=== PATIENT | female | born 1985 | race Caucasian/White ===

== ENCOUNTER → 2022-04-15 | Outpatient (CLI) | payer OTHER, SELFPAY ==
--- NOTE | 2022-04-15 17:20 | RAD_ITS ---
STUDY: X-RAY CHEST REASON FOR EXAM: Female, 36 years old. Acute bronchitis. TECHNIQUE: COMPARISON: None. FINDINGS: The lungs are clear and expanded. There is no demonstrated pleural abnormality. Normal size heart. Normal mediastinum and dixon. Normal visualized pulmonary arteries. Normal visualized aortic arch and descending thoracic aorta. Normal visualized thoracic spine. Normal visualized ribs, clavicles, and shoulders. There is no demonstrated abnormality of the visualized soft tissue structures of the upper abdomen. RAD/Chest PA and Lateral IMPRESSION: Normal x-ray examination of the chest. Electronically Signed: Cliff Zamora DO at 21:17 [facility] ,
== END | disposition home or self-care (01) ==
PROVIDERS: PCP Family Medicine; Referring Provider Family Medicine; Visit Provider Family Medicine
DX: J20.9 Acute bronchitis, unspecified (principal)
CPT/HCPCS: 71046

== ENCOUNTER 2022-11-19 12:10 | Inpatient (IN) | payer OTHER, SELFPAY ==
[2022-11-19] VITALS (66 sets, daily range): BP systolic 104–144; BP diastolic 52–85; PULSE 85–124; RESP 16; TEMP 36.4–37.3; O2SAT 85–100; BMI 28.5
[2022-11-19] MEDS: LACTATED RINGERS 500 ML 999 ML IV (12:55)
[2022-11-19 13:10] LABS: Absolute Lymphocyte Count 2.27 X10^3/uL (0.83-4.51); Absolute Neutrophil Count 16.3 X10^3/uL (2.0-7.7); Basophil# 0.04 X10^3/uL; Basophil% 0.2 % (0-1); Eosinophil# 0.04 X10^3/uL; Eosinophils% 0.2 % (0-5); Hematocrit 39.6 % (37-47); Hemoglobin 13.2 g/dL (12.0-15.0); Lymphocyte # 2.27 X10^3/ul (0.83-4.51); Lymphocyte % 11.4 % (19-41); Mean Corp Hgb Conc 33.3 g/dL (32-36); Mean Corpuscular Hgb 29.2 pg (27.0-32.0); Mean Corpuscular Volume 87.6 fL (81-99); Mean Platelet Vol. 10.4 fl (6.2-12.0); Monocyte# 1.07 X10^3/uL; Monocyte% 5.4 % (0-10); NRBC Flagged by Analyzer 0 % (0-5); Neutrophil # 16.34 X10^3/uL (2.7-7.7); Neutrophil % 82.1 % (47-70); Platelet Count 314 K/mm3 (150-450); RBC Distribution Width CV 13.3 % (11.6-14.6); RBC Distribution Width SD 42.4 fl (35.1-43.9); Red Blood Count 4.52 M/mm3 (4.2-5.4); White Blood Count 19.9 K/mm3 (4.4-11.0)
[2022-11-19] MEDS: Lactated Ringers 1,000 ML 50 ML IV (13:26)
[2022-11-19 13:50] LABS: Syphilis Antibodies Non-reactive
[2022-11-19] MEDS: fentaNYL-bupivacaine (epidural) 100 ML BAG EPIDURAL (13:57)
--- NOTE | 2022-11-19 14:36 | PCM.HP.OB ---
HPI - General General Date of Admission: 11/19/22 Date of Service: 11/19/22 Chief Complaint: labor HPI Narrative GIORGIO HASTINGS, is a 37 F who presents complaining of contract. She was found to be 4-1/2 cm in the office this morning and sent to labor and delivery for labor. She was very uncomfortable with the contractions. is complicated to date by advanced maternal age. Maternal Data Information Final NETTIE: 11/26/22 Gestational age: 39 0/7 PFSH PFSH Home Medications B6 200 mg-levomefolate 8 mg-B12 4 mg-ALA 600 mg-intrinsic fact tablet tab PO DAILY nausea 11/19/22 [History Last Taken 11/18/22 09:00 1 TAB] 1 1 tab PO DAILY 11/19/22 [History Last Taken 11/18/22 08:42 1 tab] aspirin 81 mg tablet,delayed release 81 mg PO DAILY 11/19/22 [History Last Taken 11/18/22 17:00 81 mg] Allergy/AdvReac Type Severity Reaction Status Date / Time No Known Allergies Allergy Verified 11/19/22 12:28 Surgical History (Updated 11/19/22 @ 14:23 by Abigail Escobar) History of surgery Social History Smoking Status: Never smoker History Elective abortions Hx Para 0 Spontaneous abortions Hx # Term Pregnancies Ectopic pregnancies Hx # Pregnancies Multiple births # of living children ROS Constitutional Constitutional: Denies fatigue, fever(s) or malaise Eyes Eyes: Denies change in vision ENT HEENT: Denies dizziness or headache(s) Cardiovascular Cardiovascular: Denies chest pain, dyspnea or lightheadedness Respiratory/Chest Respiratory/Chest: Denies cough or dyspnea Gastrointestinal Gastrointestinal: Denies change in bowel habits Genitourinary Genitourinary: Denies burning urination or genital lesions Integumentary Integumentary: Denies rash Neurologic Neurologic: Denies confusion, dizziness, headache(s), numbness or weakness Vital Signs Vital Signs Vital Signs: 11/19/22 13:32 11/19/22 13:32 11/19/22 13:33 Temperature Temperature Source Pulse Rate 97 117 H Blood Pressure 119/75 BP Systolic 119 BP Diastolic 75 Pulse Ox 11/19/22 13:33 11/19/22 13:38 11/19/22 13:38 Temperature Temperature Source Pulse Rate 96 Blood Pressure 139/81 H BP Systolic 139 BP Diastolic 81 Pulse Ox 98 11/19/22 13:38 11/19/22 13:38 11/19/22 13:43 Temperature Temperature Source Pulse Rate 108 H Blood Pressure 133/77 H BP Systolic 133 BP Diastolic 77 Pulse Ox 100 11/19/22 13:43 11/19/22 13:43 11/19/22 13:48 Temperature Temperature Source Pulse Rate 124 H Blood Pressure 128/70 H BP Systolic 128 BP Diastolic 70 Pulse Ox 99 11/19/22 13:48 11/19/22 13:48 11/19/22 13:53 Temperature Temperature Source Pulse Rate 100 Blood Pressure 131/63 H BP Systolic 131 BP Diastolic 63 Pulse Ox 99 11/19/22 13:53 11/19/22 13:53 11/19/22 13:53 Temperature Temperature Source Pulse Rate 94 116 H Blood Pressure BP Systolic BP Diastolic Pulse Ox 97 11/19/22 13:58 11/19/22 13:58 11/19/22 13:58 Temperature Temperature Source Pulse Rate 105 H Blood Pressure 138/81 H BP Systolic 138 BP Diastolic 81 Pulse Ox 95 11/19/22 14:03 11/19/22 14:03 11/19/22 14:00 Temperature Temperature Source Temporal Pulse Rate 85 Blood Pressure 129/70 H BP Systolic 129 BP Diastolic 70 Pulse Ox 11/19/22 14:04 11/19/22 14:04 11/19/22 14:00 Temperature 99.2 F H Temperature Source Pulse Rate 105 H Blood Pressure BP Systolic BP Diastolic Pulse Ox 98 11/19/22 14:08 11/19/22 14:08 11/19/22 14:09 Temperature Temperature Source Pulse Rate 92 96 Blood Pressure 126/70 H BP Systolic 126 BP Diastolic 70 Pulse Ox 11/19/22 14:09 11/19/22 14:13 11/19/22 14:13 Temperature Temperature Source Pulse Rate 88 Blood Pressure 129/70 H BP Systolic 129 BP Diastolic 70 Pulse Ox 99 11/19/22 14:13 11/19/22 14:14 11/19/22 14:14 Temperature Temperature Source Pulse Rate 85 Blood Pressure BP Systolic BP Diastolic Pulse Ox 85 96 11/19/22 14:18 11/19/22 14:18 11/19/22 14:19 Temperature Temperature Source Pulse Rate 96 89 Blood Pressure 131/77 H BP Systolic 131 BP Diastolic 77 Pulse Ox 11/19/22 14:19 11/19/22 14:19 11/19/22 14:19 Temperature Temperature Source Pulse Rate 93 Blood Pressure BP Systolic BP Diastolic Pulse Ox 94 96 11/19/22 14:24 11/19/22 14:24 11/19/22 14:24 Temperature Temperature Source Pulse Rate 96 95 Blood Pressure 119/74 BP Systolic 119 BP Diastolic 74 Pulse Ox 11/19/22 14:24 11/19/22 14:28 11/19/22 14:28 Temperature Temperature Source Pulse Rate 111 H Blood Pressure 125/80 H BP Systolic 125 BP Diastolic 80 Pulse Ox 99 11/19/22 14:28 11/19/22 14:29 11/19/22 14:29 Temperature Temperature Source Pulse Rate 88 Blood Pressure BP Systolic BP Diastolic Pulse Ox 88 93 11/19/22 14:33 11/19/22 14:33 11/19/22 14:34 Temperature Temperature Source Pulse Rate 110 H 98 Blood Pressure 123/71 H BP Systolic 123 BP Diastolic 71 Pulse Ox 11/19/22 14:34 Temperature Temperature Source Pulse Rate Blood Pressure BP Systolic BP Diastolic Pulse Ox 93 Weight Weight: 85.275 kg Body Mass Index (BMI) 28.5 Labs Labs Labs: Blood Type A NEGATIVE Antibody Screen NEGATIVE Hct 39.6 % (37-47) Hgb 13.2 g/dL (12.0-15.0) Syphilis Total Ab Non-reactive Assessment & Plan (1) Spontaneous onset of labor: PLAN: 37-year-old 1 para 0 in spontaneous labor. Estimated weight is less than 4500 g clinically and pelvis clinically adequate to expect vaginal delivery. May have routine pain control measures during labor. Group B strep status is negative. (2) 39 weeks gestation of : (3) Advanced maternal age during in third trimester:
[2022-11-19] MEDS: Oxytocin 10 UNITS/ML Vial IM (16:18)
[2022-11-19] MEDS: Oxytocin 15 Units/NS 250ml 15 UNITS/250 ML IV.SOLN 83 UNITS IV (16:19)
[2022-11-19] MEDS: Lidocaine 1% (20 ml mdv) 20 ML Vial INFILT (16:25)
--- NOTE | 2022-11-19 16:41 | EX.PCM.OBRPT ---
Assessment & Plan (1) (spontaneous vaginal delivery): (2) Laceration, obstetrical, first degree: (3) Care and examination of lactating mother: Maternal Data Information NETTIE Calculator Estimated Delivery Date Method Current WG Current Estimate 11/26/22 Manual 39w 0d Vaginal Delivery Maternal Presentation Maternal Presentation: - (Spontaneous onset of labor.) Maternal Presentation: at 39 weeks gestation that was sent over from office for spontaneous onset of labor. Operative Information Date of Procedure: 11/19/22 Pre-Operative Diagnosis: Term gestation, Spontaneous onset of labor Post-Operative Diagnosis: , Live female infant Surgery / Procedure Performed: Spontaneous Vaginal Delivery Type of Anesthesia: Local with 1% Lidocaine Estimated Blood Loss: 150 Time of Delivery: 16:14 Findings Description of Procedure: Patient feeling urge to push. Arrived at bedside. With minimal maternal effort, head delivered followed by anterior shoulder and remainder of body. Vigorous female placed on abdomen and attended to by nursing staff. IM and IV Pitocin started for active management of the third stage of labor. Placenta delivered spontaneously and intact. First degree vaginal laceration repaired in usual fashion using 3-0 Vicryl Rapid after local anesthesia placed. Hemostasis obtained. Vaginal sweep completed by me. Fundus firm 2 below U. EBL 150 cc. APGARS 9/9. Infant and patient bonding well at this time. Nursing assisting with latching for . Dr Maloney notified of delivery. Presentation: Vertex Amniotic Membrane Rupture Type: Artificial Time of Membrane Rupture: 1443 Amniotic Fluid Description: Clear Placental Delivery Description: Spontaneous Placenta Disposition: [facility] Cord Vessel Description: 3 Vessels Cord Entanglement: None A Gender: Female (1 minute): 9 (5 minute): 9 Delayed Cord Clamping: Yes Post Vaginal Delivery Medications Given After Delivery: IV Pitocin and IM Pitocin Episiotomy Description: None Laceration: 1st degree Complication Complications: None
[2022-11-19] MEDS: Senna/Docusate Sodium 1 Tablet PO (20:43)
[2022-11-19] MEDS: Benzocaine/Lanolin/Aloe Vera 1 SPRAY EACH TOPICAL (20:59)
[2022-11-20] VITALS (13 sets, daily range): BP systolic 111–130; BP diastolic 67–74; PULSE 73–108; RESP 16; TEMP 36.2–37.4; O2SAT 93–98
--- NOTE | 2022-11-20 06:43 | PN.OBGYN_ITS ---
Subjective Subjective Patient seen at bedside. Feeling good. Denies any pain. Ambulating and voiding without difficulty. Lochia decreasing. with support. Desires discharge tomorrow. Objective Data Objective Data Vital Signs: Vital Signs Temp Pulse Resp BP Pulse Ox O2 Del Method 99.0 F 93 16 111/71 98 Room Air 11/20/22 04:04 11/20/22 04:05 11/20/22 04:04 11/20/22 04:05 11/20/22 04:04 11/20/22 04:04 Oxygen Delivery Method Room Air Weight: 188 lb Body Mass Index (BMI) 28.5 Intake & Output: Intake and Output for Last 24 Hours 11/18/22 11/19/22 11/20/22 23:59 23:59 23:59 Intake Total 886.23 / 886.23 Output Total 350 / 350 Balance 536.23 / 536.23 Lab / Micro Data Attestation: I reviewed the patient's lab results. 11/19/22 12:55 Labs: Laboratory Results - last 24 hr 11/19/22 12:55: WBC 19.9 H, RBC 4.52, Hgb 13.2, Hct 39.6, MCV 87.6, MCH 29.2, MCHC 33.3, RDW Std Deviation 42.4, RDW Coeff of Conrad 13.3, Plt Count 314, MPV 10.4, Immature Gran % (Auto) 0.700, Neut % (Auto) 82.1 H, Lymph % (Auto) 11.4 L, [place] % (Auto) 5.4, Eos % (Auto) 0.2, Baso % (Auto) 0.2, Absolute Neuts (auto) 16.3 H, Absolute Lymphs (auto) 2.27, Nucleated RBC % 0, Syphilis Total Ab Non- reactive, Blood Type A NEGATIVE, Antibody Screen NEGATIVE 11/19/22 18:16: Screen NEGATIVE, Baby's Blood Type B POSITIVE, Baby's CHARLES NEGATIVE ROS Eyes Eyes: Denies blurry vision, change in vision or spots in vision ENT HEENT: Denies dizziness or headache(s) Cardiovascular Cardiovascular: Denies abdominal pain, chest pain or dyspnea Respiratory/Chest Respiratory/Chest: Denies cough, dyspnea, shortness of breath at rest or shortness of breath with exertion Gastrointestinal Gastrointestinal: Denies abdominal pain, diarrhea or vomiting Genitourinary Genitourinary: Denies change in urinary stream, difficulty urinating or dysuria Musculoskeletal Musculoskeletal: Reports none Integumentary Integumentary: Denies rash Neurologic Neurologic: Denies dizziness, headache(s), memory loss or weakness Physical Exam Const alert and no apparent distress General Appearance: cooperative and comfortable Exam Limitations: no limitations HEENT normocephalic Eyes General Eye: normal appearance of both eyes Neck full ROM General: normal visual inspection Chest Chest: symmetrical chest wall rise Resp normal respiratory effort and normal air movement Effort and Inspection: symmetric chest movement Auscultation: clear to auscultation bilaterally Cardio regular rate and regular rhythm GI normal to inspection, nondistended, normoactive bowel sounds Back/Spine normal ROM Extremity full ROM and no calf tenderness General Extremity: normal exam except as noted Skin no rashes or lesions noted Neuro CN's II-XII intact bilaterally Psych mental status grossly normal Assessment & Plan (1) Care and examination of lactating mother: (2) Laceration, obstetrical, first degree: (3) (spontaneous vaginal delivery): PLAN: Plan PPD 1 Ambulating and voiding without difficulty with support Anticipate discharge home tomorrow
--- NOTE | 2022-11-20 09:15 | NURSING ---
Assisted student with AM assessment and agree with student charting. KARYN Chow [employer] instructor
[2022-11-21 02:12] VITALS: BP 116/62; PULSE 87; RESP 16; TEMP 36.8; O2SAT 94
[2022-11-21 08:43] VITALS: BP 113/62; PULSE 90; RESP 16; TEMP 36.9
--- NOTE | 2022-11-21 12:06 | PCM.PN.BLA ---
Progress Note Pain well controlled. Average lochia Physical Exam Const alert and no apparent distress Narrative: Fundus firm, below umbilicus. Assessment & Plan Assessment/Plan (1) (spontaneous vaginal delivery): PLAN: day #2 status post vaginal delivery. Patient is doing well and desires discharge home
--- NOTE | 2022-11-21 12:09 | DS.PCM_ITS ---
Providers Date of Admission: 11/19/22 Primary Care Physician: Dr. Zeke Gauthier MD Reason For Visit: VAGINAL DELIVERY Diagnosis Discharge Diagnosis (1) (spontaneous vaginal delivery): Status: Acute Code(s): O80 - Encounter for full-term uncomplicated delivery Plan: day #2 status post vaginal delivery. Patient is doing well and desires discharge home Medications at Discharge Home Medications B6 200 mg-levomefolate 8 mg-B12 4 mg-ALA 600 mg-intrinsic fact tablet tab PO DAILY nausea 11/19/22 1 1 tab PO DAILY 11/19/22 Hospital Course Operations None Procedures None Summary of Care Provided Minutes Spent on Discharge: 12 Hospital Course: Patient was admitted at term on 11/19/2022 in spontaneous labor. She had a vaginal delivery without complications. By postoperative day #2 she was ambulating, urinating tolerating regular diet and ready for discharge home. She is to follow-up in the office in 1-2 in 6 weeks or as needed. Weight / BMI Weight Weight: 85.275 kg Body Mass Index (BMI) 28.5 ABG / Lab / Microbiology Data 11/19/22 12:55 D/C Instructions Discharge Diet: No restrictions May resume sexual activity in: 6 weeks Call your doctor if your incision/area has: Continuous Slow Oozing, Sudden Increased Bleeding, Foul Smelling Discharge and Swelling at the incision site Call your doctor if you observe: Fever of 101 or Higher and Inability to urinate Please Follow Up With: Daisy Barrett MD When: Follow up with our office in 1-2 and 6 weeks or as needed. [phone]. Contact us via [employer] to schedule appointments and for nonurgent issues. Meaningful Use Info Meaningful Use Diagnoses (Choose all that apply): None applicable Discharge Plan Admission Admit Date/Time: 11/19/22 12:10 Primary Reason for Your Visit: Vaginal delivery Attending Provider: Lizabeth Duron Primary Care Provider: Zeke Gauthier Discharge Orders/Prescriptions Prescriptions: Continued 1 1 tab PO DAILY [id number] 200-8-4-600 mg tablet PO DAILY Discontinued aspirin 81 mg tablet,delayed release (DR/EC) 81 mg PO DAILY Referrals / Follow Up: Zeke Gauthier MD [Primary Care Provider] - Disposition Disposition (needs filled in before D/C Order can be placed): Home, Self Care
== END 2022-11-21 12:45 | disposition home or self-care (01) | DRG 807 ==
PROVIDERS: Admitting Provider Advanced Practice Midwife; PCP Family Medicine; Visit Provider Advanced Practice Midwife
DX: O70.0 First degree perineal laceration during delivery (principal); Z37.0 Single live birth; Z79.82 Long term (current) use of aspirin; Z3A.39 39 weeks gestation of pregnancy
CPT/HCPCS: 59025; 59050; 85025; 85461; 86780; 86850; 86900; 86901; 99221; J7120; G0378; J2790

== ENCOUNTER 2022-12-24 10:49 | Emergency (ER) | payer OTHER, SELFPAY ==
[2022-12-24 10:51] VITALS: BP 147/89; PULSE 110; RESP 18; TEMP 36.3; O2SAT 99; BMI 27.1
--- NOTE | 2022-12-24 11:18 | EX.ED.DYSGE1 ---
HPI History of Present Illness Chief Complaint: Abd Pain Informant: patient Narrative Narrative: Presents with sudden pain left lower quadrant rating to her back since this morning. Reported in the position. Nausea without vomiting. Took Tylenol at 8 AM. She is 5 weeks vaginal delivery followed by [facility]. There is no complications with delivery or during her . This was her first delivery. She is currently breast-feeding. Denies history of kidney stones. States has had pain in her left ovary area with menstrual periods in the past however no findings of any large ovarian cyst. She states none during her . Denies any abdominal surgery. Denies any allergies. No headaches. No chest pains or shortness of breath. Prior similar symptoms: No PFSH PFSH Medical History Laceration, obstetrical, first degree (spontaneous vaginal delivery) Home Medications B6 200 mg-levomefolate 8 mg-B12 4 mg-ALA 600 mg-intrinsic fact tablet tab PO DAILY nausea 11/19/22 [History Last Taken 11/18/22 09:00 1 TAB] 1 1 tab PO DAILY 11/19/22 [History Last Taken 11/18/22 08:42 1 tab] cefdinir 300 mg capsule 300 mg PO BID #14 caps 12/24/22 [Rx Last Taken Unknown] ondansetron 4 mg disintegrating tablet 4 mg PO Q8H PRN PRN Nausea #10 tabs 12/24/22 [Rx Last Taken Unknown] Allergy/AdvReac Type Severity Reaction Status Date / Time No Known Allergies Allergy Verified 12/24/22 11:02 Surgical History History of surgery Social History Smoking Status: Never smoker ROS ROS ED Constitutional Constitutional ED: Denies chills, fever(s) or sweats Eyes Eyes: Denies change in vision ENT ENT ED: Denies dysphagia or sore throat Cardiovascular Cardiovascular: Denies chest pain, leg edema, palpitations or racing heartbeat Respiratory/Chest Respiratory/Chest: Denies cough, dyspnea or dyspnea on exertion Gastrointestinal Gastrointestinal: Reports abdominal pain and nausea; Denies diarrhea or vomiting Genitourinary Genitourinary ED: Denies dysuria, hematuria or urinary frequency Musculoskeletal Musculoskeletal: Denies back pain, extremity pain or neck pain Integumentary Denies rash or wounds Neurologic Neurologic: Denies headache(s), paresthesias or weakness EXAM Physical Exam Const Vital Signs: 12/24/22 10:51 12/24/22 13:19 12/24/22 15:37 Temperature 97.3 F L Temperature Source Temporal Pulse Rate 110 H 85 95 Respiratory Rate 18 13 16 Blood Pressure 147/89 H 120/70 117/81 H Blood Pressure Mean 108 86 93 Pulse Ox 99 96 95 Oxygen Delivery Method Room Air Room Air Positive well nourished and well developed General Appearance ED: well developed and NAD HEENT Reports moist mucous membranes normocephalic and atraumatic Eyes PERRL, EOMs intact bilaterally and conjunctivae normal General Eye ED: Yes normal appearance of both eyes Neck no lymphadenopathy and supple General: Negative for tenderness Chest Wall Chest: Negative for tenderness Resp normal respiratory effort and normal air movement Effort and Inspection: symmetric chest movement; Negative for respiratory distress Cardio regular rate, regular rhythm and no murmurs Peripheral Pulses: pulses 2+ throughout GI normal to inspection, nondistended, normoactive bowel sounds and non-tender GI Narrative: Negative Serna's McBurney's tenderness. No reproducible left lower quadrant tenderness. Palpation: Negative for guarding or rebound tenderness present Back/Spine no CVA tenderness and no thoracic nor lumbar tenderness Extremity normal to inspection General Extremety ED: Negative for edema or tenderness General Extremity: Negative for edema Neuro oriented x3 and no sensory deficits noted Neuro Narrative: 2+ bilateral patellar reflexes. Sensorium / Orientation: awake and alert Skin no rashes or lesions noted and no wounds MDM MDM MDM Narrative Medical decision making narrative: Interventions / MDM: Differential diagnosis: Stones, UTI Diagnosis considered but do not suspect: Preeclampsia however blood pressure improved likely pain induced. My EKG interpretation: N/A Imaging independently reviewed and interpreted by myself: CT abdomen pelvis: Mild residual hydronephrosis on the left with no obstructing stone. Likely passed stone. Nephrolithiasis noted. Is also read by radiology. External documents reviewed: N/A Test considered but not ordered:N/A ED course: Presenting sudden pain colicky in nature left lower quadrant. Renal stone protocol initiated. Initial Toradol fluids were ordered CT scan labs and urine. Additional morphine later added. Blood pressure improved when pain was controlled. Work-up with CT scan likely passed stone with residual hydro-. Nephrolithiasis also noted. White count 14.8. Urine signs infection culture sent. Normal creatinine. Pain is controlled. She is covered with Rocephin for complicated UTI. Prescription for antibiotics and antiemetics. She wanted to avoid further opiates. She will pump and dump for the next 24 hours. She is given follow-up with urology. Return precautions. All questions were answered. Re-evaluation: stable Disposition discussed with patient/family/significant other: Patient and family Case discussed with consulting clinician: N/A This note was generated with [employer] dictation software. It may contain incorrect words, spelling, and punctuation that were not noted in checking the note before signing. Lab Data Attestation: I reviewed the patient's lab results. Labs: Laboratory Results - last 24 hr 12/24/22 12/24/22 11:30 12:40 WBC 14.8 H RBC 5.16 Hgb 14.8 Hct 44.7 MCV 86.6 MCH 28.7 MCHC 33.1 RDW Std Deviation 40.1 RDW Coeff of Conrad 12.6 Plt Count 328 MPV 9.8 Immature Gran % (Auto) 0.300 Neut % (Auto) 76.7 H Lymph % (Auto) 16.8 L [place] % (Auto) 5.3 Eos % (Auto) 0.5 Baso % (Auto) 0.4 Absolute Neuts (auto) 11.4 H Absolute Lymphs (auto) 2.49 Nucleated RBC % 0 Sodium 140 Potassium 3.7 Chloride 110 H Carbon Dioxide 21.0 Anion Gap 9 BUN 15 Creatinine 0.83 Estim Creat Clear Calc 94.52 Est GFR (MDRD) Af Amer 100 Est GFR (MDRD) Non-Af 83 BUN/Creatinine Ratio 18.1 Glucose 98 Calcium 9.0 Total Bilirubin 0.40 AST 18 ALT 41 Alkaline Phosphatase 107 Total Protein 7.4 Albumin 3.5 Globulin 3.9 Albumin/Globulin Ratio 0.9 Urine Color Yellow Urine Clarity Sl. Cloudy Urine pH 6.0 Ur Specific [place] 1.015 Urine Protein 15 H Urine Glucose (UA) Normal Urine Ketones Negative Urine Occult Blood 50 H Urine Nitrite Negative Urine Bilirubin Negative Urine Urobilinogen Normal Ur Leukocyte Esterase 500 H Urine RBC 0-5 SEEN Urine WBC 10-25 SEEN Ur Squamous Epith Cells 0-5 SEEN Urine Bacteria 1+ Urine Mucus 1+ Urine Test Negative Radiography Diagnostic Testing: Clinical Impression(s) from Imaging Studies Abdomen/Pelvis CT 12/24/22 11:55 IMPRESSION: 1. Mild left hydronephrosis but no visible obstructing stones in the left kidney, left ureter and urinary bladder. It is quite possible that the patient has passed the stone and this may be due to residual spasm in the left UVJ. 2. At least 4 tiny 2 mm nonobstructing stones in left kidney. 3. Normal right kidney. 4. Mild hepatomegaly measuring 19.8 cm long. Electronically Signed: Miguel Gomez MD at 12:16 EDT , Discharge Plan Triage Chief Complaint: Abd Pain ED Provider: Oscar Chatman Dx/Rx/DC Orders Clinical Impression: Acute flank pain, Complicated urinary tract infection, Hydronephrosis, left Instructions: UTIs Understanding, Understanding Hydronephrosis Prescriptions: New ondansetron [ondansetron] 4 mg tablet,disintegrating 4 mg PO Q8H PRN PRN (Reason: Nausea) Qty: 10 0RF cefdinir 300 mg capsule 300 mg PO BID Qty: 14 0RF No Action 1 1 tab PO DAILY [id number] 200-8-4-600 mg tablet PO DAILY Primary Care Provider: Zeke Gauthier Referrals: Caden Tompkins MD [Med Staff - Active Staff] - 1 Week Zeke Gauthier MD [Primary Care Provider] - Activity Restrictions/Additional Instructions: Mild residual hydronephrosis on the left side. No stone obstruction. Residual small stones in the left kidney. Urine with signs of infection. Take antibiotics as prescribed. Zofran as needed. Use Tylenol or Motrin every 6 hours as needed. Pump and dump your milk for the next day since you were given morphine. Follow-up with urology. Return if any worsening symptoms for reevaluation. Disposition Disposition: Home, Self Care Discharge Date/Time: 12/24/22 15:40
[2022-12-24] MEDS: 0.9% Normal Saline (1000mL) 1,000 ML 1000 ML IV (11:34)
[2022-12-24] MEDS: Ondansetron 4 MG/2 ML Vial IV (11:34)
[2022-12-24] MEDS: Ketorolac 15 MG/ML Vial IV (11:34)
[2022-12-24 11:49] LABS: Absolute Lymphocyte Count 2.49 X10^3/uL (0.83-4.51); Absolute Neutrophil Count 11.4 X10^3/uL (2.0-7.7); Basophil# 0.06 X10^3/uL; Basophil% 0.4 % (0-1); Eosinophil# 0.07 X10^3/uL; Eosinophils% 0.5 % (0-5); Hematocrit 44.7 % (37-47); Hemoglobin 14.8 g/dL (12.0-15.0); Lymphocyte # 2.49 X10^3/ul (0.83-4.51); Lymphocyte % 16.8 % (19-41); Mean Corp Hgb Conc 33.1 g/dL (32-36); Mean Corpuscular Hgb 28.7 pg (27.0-32.0); Mean Corpuscular Volume 86.6 fL (81-99); Mean Platelet Vol. 9.8 fl (6.2-12.0); Monocyte# 0.78 X10^3/uL; Monocyte% 5.3 % (0-10); NRBC Flagged by Analyzer 0 % (0-5); Neutrophil # 11.39 X10^3/uL (2.7-7.7); Neutrophil % 76.7 % (47-70); Platelet Count 328 K/mm3 (150-450); RBC Distribution Width CV 12.6 % (11.6-14.6); RBC Distribution Width SD 40.1 fl (35.1-43.9); Red Blood Count 5.16 M/mm3 (4.2-5.4); White Blood Count 14.8 K/mm3 (4.4-11.0)
--- NOTE | 2022-12-24 11:55 | CT_ITS ---
EXAM: CT ABDOMEN AND PELVIS WITHOUT INTRAVENOUS CONTRAST CLINICAL INDICATION: Flank pain. TECHNIQUE: Helically acquired images were obtained of the abdomen and pelvis without intravenous contrast. This CT exam was performed using one or more of the following dose reduction techniques: automated exposure control, adjustment of the mA and/or kV according to patient size, and/or use of iterative reconstruction technique. RADIATION DOSE: CTDIvol = 8.63 mGy, DLP = 448.34 mGy-cm COMPARISON: No relevant prior studies available. FINDINGS: LOWER THORAX: Unremarkable. Lung bases are clear. No cardiomegaly. No significant pericardial effusion. ABDOMEN: LIVER: Calcified granuloma in the right posterior hepatic lobe. Mild hepatomegaly measuring 19.8 cm long. GALLBLADDER AND BILE DUCTS: Unremarkable. No calcified gallstones. No gallbladder distention or wall edema. No intra- or extrahepatic biliary ductal dilation. PANCREAS: Unremarkable. No focal cystic mass. SPLEEN: Unremarkable. Normal size without focal cystic or solid mass. ADRENALS: Unremarkable. No nodules. KIDNEYS AND URETERS: At least 4 tiny 2 mm nonobstructing stones in the left kidney. Mild left hydronephrosis. No visible obstructing stone in the left ureter. No stones or hydronephrosis in the right kidney. Normal renal size and position. STOMACH AND BOWEL: Unremarkable. No stomach or bowel distention. No focal inflammatory change. PELVIS: APPENDIX: Normal. BLADDER: Unremarkable. No visible mass or stone in the urinary bladder. REPRODUCTIVE: Unremarkable as visualized. No mass. ABDOMEN and PELVIS: INTRAPERITONEAL SPACE: Unremarkable. No ascites or other fluid collection. No free air. BONES/JOINTS: Unremarkable. No suspicious lytic or blastic abnormality. SOFT TISSUES: Unremarkable. No discrete abdominal or pelvic wall hernia. VASCULATURE: Unremarkable. Abdominal aorta is non-dilated. LYMPH NODES: Unremarkable. No enlarged lymph nodes. CT/Abdomen/Pelvis without Cont IMPRESSION: 1. Mild left hydronephrosis but no visible obstructing stones in the left kidney, left ureter and urinary bladder. It is quite possible that the patient has passed the stone and this may be due to residual spasm in the left UVJ. 2. At least 4 tiny 2 mm nonobstructing stones in left kidney. 3. Normal right kidney. 4. Mild hepatomegaly measuring 19.8 cm long. Electronically Signed: Miguel Gomez MD at 12:16 EDT ,
[2022-12-24 12:03] LABS: ALB/GLOB Ratio 0.9 RATIO (0.9-2.4); AST(SGOT) 18 U/L (15-37); Alanine Aminotransfer ALT/SGPT 41 U/L (13-56); Albumin, Serum 3.5 g/dL (3.2-5.0); Alkaline Phosphatase 107 U/L (45-117); Anion Gap 9 (5-15); BUN 15 mg/dL (7-18); BUN/Creat Ratio 18.1 RATIO (10-20); Chloride 110 mmol/L (98-107); Creatinine, Serum 0.83 mg/dL (0.55-1.02); EST Glomerular Filtration Rate 83 mL/min (>60); Est Glom Filt Rate - Afr Amer 100 mL/min (>60); Estimated Creatinine Clearance 94.52 ml/min; Globulin 3.9 g/dL (2.2-4.2); Glucose 98 mg/dL (74-106); Potassium 3.7 mmol/L (3.5-5.1); Protein, Total 7.4 g/dL (6.4-8.2); Sodium Level 140 mmol/L (136-145)
[2022-12-24 12:49] LABS: Color, Urine Yellow (Yellow); Glucose, Dipstick Normal (Normal); Ketone-Dipstick Negative (Negative); Leukocyte Esterase-Dipstick 500 /ul (Negative); Nitrite-Dipstick Negative (Negative); Occult Blood-Urine 50 /ul (Negative); Protein-Dipstick 15 mg/dl (Negative); Specific Gravity, Urine 1.015 (1.002-1.030); Urine Bilirubin Dipstick Negative (Negative); Urine Clarity Sl. Cloudy (Clear); Urine Urobilinogen Normal (Normal)
[2022-12-24 12:50] LABS: Internal QC Validated? YES +Cl - CLEAR BKGD; Record Kit Lot#,Urine Preg HCG0000667200
[2022-12-24 12:52] LABS: Pregnancy, Urine Negative Negative
[2022-12-24 12:55] LABS: Bacteria 1+ /hpf (None Seen); Mucous, Urine 1+ /hpf (<or=2+); Red Blood Cells-Urine 0-5 SEEN /hpf (0-5); Squamous Epithelial Cells - UA 0-5 SEEN /hpf (5-10); White Blood Cells 10-25 SEEN /hpf (0-5)
[2022-12-24] MEDS: Morphine 4 MG/ML Syringe IV (12:55)
[2022-12-24 13:19] VITALS: BP 120/70; PULSE 85; RESP 13; O2SAT 96
[2022-12-24] MEDS: Ceftriaxone 1 GM/50 ML BAG IV (14:34)
--- NOTE | 2022-12-24 14:58 | NURSING ---
ER Nurse called IBCLC as patient is requesting to talk with IBCLC regaurding current status. Patient reports that she has been working with [employer] and has been supplementing with formula along with providing breastmilk. Is not exclusively pumping and no longer latching. She reports that this is due to low supply and latching difficulty and with her new diagnosis of kidney stone she is unsure if she would like to continue providing any breastmilk to her 5 week old and wanted guidance on what that would look like for her. reports she pumps 110ml at times and 30ml at times and currently pumps every 2.5-3 hours. We discussed methods of decreasing pumping time and amount and ways to prevent breast infection. We discussed tips for managing engorgement and offered outpatient appt. Patient is going to call us in a few days to check in and revisit her request for weaning. She also requested information on pumping and dumping while on Morphone (l3) and Rocephin (l1). this information was provided to patient useing Dr Rubio medication and mother's milk resource. Mother also wanted information on how baby is likely to tolerate feeds if she moves to all formula vs formula mixed with breastmilk and this information was provided. patient expressed satisfaction with conversation and denies further questions or concerns at this time but will call IBCLC next week if needed/desired.
[2022-12-24 15:37] VITALS: BP 117/81; PULSE 95; RESP 16; O2SAT 95
== END 2022-12-24 15:40 | disposition home or self-care (01) ==
PROVIDERS: Emergency Provider Emergency Medicine; PCP Family Medicine; Visit Provider Emergency Medicine
DX: N13.6 Pyonephrosis (principal); R10.32 Left lower quadrant pain
CPT/HCPCS: 74176; 80053; 81001; 81025; 85025; 87086; 87088; 96361; 96365; 96375; 96376; 99284; J7030; A4216; J2405

== ENCOUNTER → 2023-04-01 | Outpatient (CLI) | payer OTHER, SELFPAY ==
--- OUTSIDE RECORDS SUMMARY | 2023-04-01 17:01 | XMS RPT_ITS | CCD ---
Author Name Unknown Address [address] [facility] [address] [place] [address] Organization [facility] Care Team Providers Care Debridging Machine Operator Name Role Phone Unavailable Primary Care Provider Unavailmaury e NIKI COLE Attending Unavail able ROHIT PICKENS Referring Unavailable JANINE DIAZ Attending Unavailable ROHIT PICKENS Attending Unavailable KAREN DEE Referring Unavailable NIKI COLE Attending Unavail able NIKI COLE Referring Unavail able ROHIT PICKENS Attending Unavailable KAREN DEE Attending Unavailable ROHIT PICKENS Attending Unavailable ROSE YIN Attending Unavailable ROCHELLE SEVILLA Attending Unavailable WISWELL, KAREN Attending Unavailable WISNELSON, KAREN Attending Unavailable WISNELSON, KAREN Referring Unavailable WISWELL, KAREN Referring Unavailable WISWELL, KAREN Attending Unavailable WISWELL, KAREN Attending Unavailable LIZABETH ORTIZ Attending Unavailable NIKI COLE Attending Unavail able LIZABETH ORTIZ Attending Unavailable NIKI COLE Attending Unavail able Medications Current Medications Medication Drug Class(es) Dates Sig (Normalized) Sig (Original) [id number] 200 actuat albuterol 0.09 mg/actuat metered dose inhaler (4 sources) beta2-Adrenergic Agonist Start: 04-15-2022 End: 05-22-2022 albuterol HFA (PROVENTIL HFA, VENTOLIN HFA) 90 mcg/actuation inhaler azithromycin 250 mg oral tablet (4 sources) Macrolide Antimicrobial Start: 04-15-2022 End: 05-22-2022 azithromycin (ZITHROMAX) 250 mg tablet VITAFUSION GUMMY TChS (8 sources) End: 08-07-2022 VITAFUSION GUMMY TChS Take by mouth. 0 08/07/2022 Discontinued Completed/Discontinued Medications Medication Drug Class(es) Dates Sig (Normalized) Sig (Original) Aspirin (16 sources) Platelet Aggregation Inhibitor, Nonsteroidal Anti-inflammatory Drug ADULT LOW DOSE PIRIN ORAL Take by mouth. 0 Active Problems Active Problems Problem Classification Problem Date Documented Da te Episodic/Chronic Early or threatened labor (1 source) Uterine contractions present; Translations: [False labor, unspecified] 11-19-2022 Episodic Immunizations and screening for infectious disease (2 sources) Vaccination needed; Translations: [Encounter for immunization] Episodic Other complications of (3 sources) Multigravida of advanced maternal age; Translations: [Supervision of elderly multigravida, second trimester] Episodic Other complications of (1 source) Advanced maternal age ; Translations: [Supervision of elderly primigravida, third trimester] 11-10-2022 Episodic Residual codes; unclassified (1 source) Gestation period, 13 weeks; Translations: [13 weeks gestation of ] Episodic Residual codes; unclassified (1 source) Gestation period, 17 weeks; Translations: [17 weeks gestation of ] Episodic Residual codes; unclassified (2 sources) Gestation period, 20 weeks; Translations: [20 weeks gestation of ] Episodic Residual codes; unclassified (1 source) Gestation period, 24 weeks; Translations: [24 weeks gestation of ] Episodic Residual codes; unclassified (1 source) Gestation period, 28 weeks; Translations: [28 weeks gestation of ] Episodic Residual codes; unclassified (1 source) Gestation period, 30 weeks; Translations: [30 weeks gestation of ] 09-21-2022 Episodic Residual codes; unclassified (1 source) Gestation period, 32 weeks; Translations: [32 weeks gestation of ] 10-05-2022 Episodic Residual codes; unclassified (1 source) Gestation period, 34 weeks; Translations: [34 weeks gestation of ] 10-20-2022 Episodic Residual codes; unclassified (1 source) Gestation period, 37 weeks; Translations: [37 weeks gestation of ] 11-10-2022 Episodic Residual codes; unclassified (1 source) Gestation period, 38 weeks; Translations: [38 weeks gestation of ] 11-16-2022 Episodic Residual codes; unclassified (1 source) Gestation period, 39 weeks; Translations: [39 weeks gestation of ] 11-19-2022 Episodic Unclassified (1 source) OPENED IN ERROR Unclassified (1 source) MEET WITH PHYSICIAN 09-18-2022 Past or Other Problems Problem Classification Problem Date Documented Da te Episodic/Chronic Other complications of (20 sources) Elderly primigravida; Translations: [Supervision of elderly primigravida, unspecified trimester] Onset: 04-16-2022 Episodic Other complications of (20 sources) Hyperemesis gravidarum; Translations: [Vomiting of , unspecified] Onset: 04-16-2022 Episodic Other complications of (20 sources) RhD negative; Translations: [Other specified related conditions, unspecified trimester] Onset: 04-27-2022 04-27-2022 Episodic Other complications of (1 source) Supervision of elderly primigravida, unspecified trimester; Translations: [Advanced maternal age, primigravida, antepartum] Onset: 04-24-2022 Episodic Other complications of (1 source) Other specified related conditions, unspecified trimester; Translations: [Rh negative state in antepartum period] Onset: 04-27-2022 Episodic Other complications of (1 source) Supervision of elderly multigravida, second trimester; Translations: [Multigravida of advanced maternal age in second trimester] Onset: 07-10-2022 Episodic Other complications of (1 source) Supervision of elderly primigravida, second trimester; Translations: [AMA (advanced maternal age) primigravida 35+, second trimester] Onset: 06-19-2022 Episodic Other lower respiratory disease (20 sources) H/O: bronchitis; Translations: [Personal history of other diseases of the respiratory system] Onset: 04-16-2022 Episodic Other and delivery including normal (4 sources) First trimester ; Translations: [Encounter for supervision of normal first , first trimester] Onset: 04-24-2022 Episodic Other screening for suspected conditions (not mental disorders or infectious disease) (3 sources) Patient encounter status; Translations: [Encounter for other specified screening] Onset: 07-10-2022 Episodic Residual codes; unclassified (1 source) 36 weeks gestation of ; Translations: [36 weeks gestation of ] Onset: 11-03-2022 Episodic Residual codes; unclassified (1 source) Unspecified blood type, Rh negative; Translations: [Rh negative state in antepartum period] Onset: 04-27-2022 Episodic Residual codes; unclassified (1 source) 24 weeks gestation of ; Translations: [24 weeks gestation of ] Onset: 08-07-2022 Episodic Residual codes; unclassified (1 source) 20 weeks gestation of ; Translations: [20 weeks gestation of ] Onset: 07-10-2022 Episodic Residual codes; unclassified (1 source) 17 weeks gestation of ; Translations: [17 weeks gestation of ] Onset: 06-19-2022 Episodic Residual codes; unclassified (1 source) 13 weeks gestation of ; Translations: [13 weeks gestation of ] Onset: 05-22-2022 Episodic Results Test Name Value Interpretation Reference Range Facil ity Vital Signs Date Time Vital Sign Value Performing Clinician Sheri tristan 01-04-2023 15:53-0400 Body weight 82.37 kg Karen Dee MD Work Phone: [facility] 01-04-2023 15:53-0400 Diastolic blood pressure 80 mm[Hg] Karen Dee MD Work Phone: [facility] 01-04-2023 15:53-0400 Systolic blood pressure 120 mm[Hg] Karen Dee MD Work Phone: [facility] 11-19-2022 11:35-0400 Body weight 86 kg Lizabeth Ortiz HEAVY EQUIPMENT RENTAL MANAGER.CNM Work Phone: [facility] 11-19-2022 11:35-0400 Diastolic blood pressure 74 mm[Hg] Lizabeth Ortiz HEAVY EQUIPMENT RENTAL MANAGER.CNM Work Phone: [facility] 11-19-2022 11:35-0400 Systolic blood pressure 126 mm[Hg] Liazbeth Ortiz HEAVY EQUIPMENT RENTAL MANAGER.CNM Work Phone: [facility] 11-16-2022 15:59-0400 Body weight 87.54 kg Rose Yin MD Work Phone: [facility] 11-16-2022 15:59-0400 Diastolic blood pressure 70 mm[Hg] Rose Yin MD Work Phone: [facility] 11-16-2022 15:59-0400 Systolic blood pressure 116 mm[Hg] Rose Yin MD Work Phone: [facility] 11-10-2022 15:56-0400 Body weight 89.18 kg Rohit Pickens MD Work Phone: [facility] 11-10-2022 15:56-0400 Diastolic blood pressure 72 mm[Hg] Rohit Pickens MD Work Phone: [facility] 11-10-2022 15:56-0400 Systolic blood pressure 118 mm[Hg] Rohit Pickens MD Work Phone: [facility] 10-20-2022 14:41-0400 Body weight 87.09 kg Niki Tran MD Work Phone: [facility] 10-20-2022 14:41-0400 Diastolic blood pressure 60 mm[Hg] Niki Tran MD Work Phone: [facility] 10-20-2022 14:41-0400 Systolic blood pressure 110 mm[Hg] Niki Tran MD Work Phone: [facility] 10-05-2022 14:22-0400 Body weight 85.28 kg Lizabeth Plotts HEAVY EQUIPMENT RENTAL MANAGER.CNM Work Phone: [facility] 10-05-2022 14:22-0400 Diastolic blood pressure 68 mm[Hg] Lizabeth Plotts HEAVY EQUIPMENT RENTAL MANAGER.CNM Work Phone: [facility] 10-05-2022 14:22-0400 Systolic blood pressure 112 mm[Hg] Lizabeth Plotts HEAVY EQUIPMENT RENTAL MANAGER.CNM Work Phone: [facility] 09-21-2022 13:35-0400 Body weight 85.73 kg Niki Tran MD Work Phone: [facility] 09-21-2022 13:35-0400 Diastolic blood pressure 60 mm[Hg] Niki Tran MD Work Phone: [facility] 09-21-2022 13:35-0400 Systolic blood pressure 104 mm[Hg] Niki Tran MD Work Phone: [facility] 09-07-2022 15:05-0400 Body weight 84.64 kg Karen Dee MD Work Phone: [facility] 09-07-2022 15:05-0400 Diastolic blood pressure 60 mm[Hg] Karen Dee MD Work Phone: [facility] 09-07-2022 15:05-0400 Systolic blood pressure 108 mm[Hg] Karen Dee MD Work Phone: [facility] 08-07-2022 08:26-0400 Body weight 81.78 kg Rohit Pickens MD Work Phone: [facility] 08-07-2022 08:26-0400 Diastolic blood pressure 62 mm[Hg] Rohit Pickens MD Work Phone: [facility] 08-07-2022 08:26-0400 Systolic blood pressure 102 mm[Hg] Rohit Pickens MD Work Phone: [facility] 07-10-2022 14:45-0400 Body weight 81.65 kg Niki Tran MD Work Phone: [facility] 07-10-2022 14:45-0400 Diastolic blood pressure 66 mm[Hg] Niki Tran MD Work Phone: [facility] 07-10-2022 14:45-0400 Systolic blood pressure 120 mm[Hg] Niki Tran MD Work Phone: [facility] 07-10-2022 13:57-0400 Body weight 81.65 kg Ob Ultrasound Work Phone: [facility] 06-19-2022 15:52-0400 Body weight 77.56 kg Niki Tran MD Work Phone: [facility] 06-19-2022 15:52-0400 Diastolic blood pressure 60 mm[Hg] Niki Tran MD Work Phone: [facility] 06-19-2022 15:52-0400 Systolic blood pressure 100 mm[Hg] Niki Tran MD Work Phone: [facility] 05-22-2022 08:26-0400 Body weight 79.83 kg Rochelle Hamlet HEAVY EQUIPMENT RENTAL MANAGER.FUEL EFFICIENT AIRCRAFT DESIGNER Work Phone: [facility] 05-22-2022 08:26-0400 Diastolic blood pressure 58 mm[Hg] Rochelle Di HEAVY EQUIPMENT RENTAL MANAGER.FUEL EFFICIENT AIRCRAFT DESIGNER Work Phone: [facility] 05-22-2022 08:26-0400 Systolic blood pressure 116 mm[Hg] Rochelle Hamlet HEAVY EQUIPMENT RENTAL MANAGER.FUEL EFFICIENT AIRCRAFT DESIGNER Work Phone: [facility] 04-24-2022 11:23-0500 Body height 167.6 cm Karen Dee MD Work Phone: [facility] 04-24-2022 11:23-0500 Body weight 80.02 kg Karen Dee MD Work Phone: [facility] 04-24-2022 11:23-0500 Diastolic blood pressure 70 mm[Hg] Karen Dee MD Work Phone: [facility] 04-24-2022 11:23-0500 Systolic blood pressure 100 mm[Hg] Karen Dee MD Work Phone: [facility] Encounters Encounter Date Encounter Type Care Provider Facility Start: 01-04-2023 End: 01-04-2023 ambulatory KAREN DEE Facility:[facility] Start: 01-04-2023 End: 01-04-2023 Patient encounter procedure Karen Dee MD Work Phone: OB/Gynecology Procedures Date Procedure Procedure Detail Performing Clinician Start: 01-04-2023 INFLUENZA VACCINE, A GE 6 MO - 64 YR, QUADRIVALENT (AFLURIA, FLULAVAL, FLUZONE) Karen Dee MD Work Phone: Start: 11-16-2022 URINE OB DIP B/O Stephanie Yin MD Work Phone: Start: 11-10-2022 URINE OB DIP B/O Rohit Pickens MD Work Phone: Start: 10-20-2022 URINE OB DIP B/O Niki Tran MD Work Phone: Start: 10-05-2022 URINE OB DIP B/O Brock Ortiz HEAVY EQUIPMENT RENTAL MANAGER.CNM Work Phone: Start: 09-21-2022 URINE OB DIP B/O Niki Tran MD Work Phone: Start: 09-07-2022 Antibody screen NIKI TRAN Plan of Treatment Date Care Activity Detail Author Start: 09-07-2032 Urine microalbumin profile [facility] Start: 04-24-2027 HPV TESTING HPV TESTING [facility] Start: 04-24-2027 PAP TESTING PAP TESTING [facility] Start: 11-06-2022 Covid-19 Vaccine ( season) Covid-19 Vaccine ( season) [facility] Start: 11-06-2022 Influenza vaccination [facility] Start: 08-07-2022 End: 10-07-2022 CBC W Auto Differential panel - Blood CBC + DIFF Lab Routine Advanced maternal age, primigravida, antepartum Expected: 08/07/2022, Expires: 10/07/2022 [facility] Work Phone: Immunizations Immunization Date Immunization Notes Care Provider [facility] 01-04-2023 influenza, injectabl e, quadrivalent, contains preservative Karen Dee MD Work Phone: [facility] 09-07-2022 RHO(D) immune globul in- IV or IM Karen Dee MD Work Phone: [facility] 09-07-2022 tetanus toxoid, redu lyudmila diphtheria toxoid, and acellular pertussis vaccine, adsorbed Karen Dee MD Work Phone: [facility] 01-30-2017 tetanus toxoid, redu lyudmila diphtheria toxoid, and acellular pertussis vaccine, adsorbed Karen Dee MD Work Phone: [facility] 01-27-1999 hepatitis B vaccine, pediatric or pediatric/adolescent dosage Karen Dee MD Work Phone: [facility] 09-02-1998 hepatitis B vaccine, pediatric or pediatric/adolescent dosage Karen Dee MD Work Phone: [facility] 07-18-1998 hepatitis B vaccine, pediatric or pediatric/adolescent dosage Karen Dee MD Work Phone: [facility] 07-18-1998 measles, mumps and rubella virus vaccine Karen Dee MD Work Phone: [facility] 06-14-1991 diphtheria, tetanus toxoids and acellular pertussis vaccine, unspecified formulation Karen Dee MD Work Phone: [facility] 06-14-1991 trivalent poliovirus vaccine, live, oral Karen Dee MD Work Phone: [facility] 06-30-1988 diphtheria, tetanus toxoids and acellular pertussis vaccine, unspecified formulation Karen Dee MD Work Phone: [facility] 06-30-1988 trivalent poliovirus vaccine, live, oral Karen Dee MD Work Phone: [facility] 01-07-1988 haemophilus influenz ae type b vaccine, conjugate unspecified formulation Karen Dee MD Work Phone: [facility] 10-24-1987 measles, mumps and rubella virus vaccine Karen Dee MD Work Phone: [facility] 01-24-1987 diphtheria, tetanus toxoids and pertussis vaccine Karen Dee MD Work Phone: [facility] 1986 diphtheria, tetanus toxoids and pertussis vaccine Karen Dee MD Work Phone: [facility] 1986 diphtheria, tetanus toxoids and pertussis vaccine Karen Dee MD Work Phone: [facility] 1986 trivalent poliovirus vaccine, live, oral Karen Dee MD Work Phone: [facility] 1986 trivalent poliovirus vaccine, live, oral Karen Dee MD Work Phone: [facility] Payers Date Payer Category Payer Unknown MMO MMO [employer] [id number] 2018-Present [phone] [address] [place] [address] PPO [id number] 2018 Unknown [id number] 2018 Unknown [id number] Social History Date Type Detail Facility Start: 04-20-2014 End: 04-24-2022 Tobacco smoking status NHIS Never smoked tobacco [facility] Start: 08-23-2020 End: 01-04-2023 Alcohol intake Current non-drinker of alcohol (finding) [facility] Start: 1985 Sex Assigned At Not on file [facility] Start: 04-20-2014 End: 04-24-2022 Tobacco use and exposure Smokeless tobacco non-user [facility] Work Phone: Start: 04-16-2022 Education 18 [facility] Start: 03-05-2022 [facility] Start: 1985 Sex Assigned At Female [facility] Start: 07-10-2022 End: 09-07-2022 History of Social function [facility] Start: 07-10-2022 End: 09-07-2022 Tobacco use panel [facility] National Score (1-100), lower number is lower risk 72 [facility] Start: 09-09-2021 Gender identity Identifies as female gender (finding) [facility] Goals Date Patient Goal Desired Activity /State Personal health goal Clinical Notes 07-14-2021 to 01-04-2023 Karen Dee MD - 01/04/2023 3:50 PM EDTTelephone Encounter - Rohit Pickens MD - 12/24/2022 11:42 AM EDTTelephone Encounter - Jana Rodriguez RN - 12/24/2022 10:21 AM EDTPatient Instructions Note Date & Type Note Facility 01-04-2023 Note HNO ID: [id number] Author: Karen Dee MD Service: ? Author Type: Physician Type: Progress Notes Filed: 01/04/2023 5:06 PM Note Text: Cutting Inspector offered: Patient declines. VISIT Jeremi Rainey is a 37 year old year old here for visit. Delivery Summary: 11/19/2022 ROS/ Recovery: Feeding: pumping and formula problems: Inadequate milk supply Menses since delivery: none Menstrual pattern prior to : Regular periods [place] since delivery: Not resumed Depression: denies symptoms of depression. OB Depression and Anxiety Screening- This Encounter (since 01/03/2023) Over the past 2 weeks have you felt down, depressed, or hopeless? Negative Over the past two weeks, have you felt little interest or pleasure in doing things?? Negative Feeling nervous, anxious or on edge 1-Several days Not being able to stop or control worrying 0-Not al all Anxiety Pre-Screening Total (If >/= 3 additional questions will be reviewed) 1 Emotional support: Yes Bowel symptoms: Negative for abdominal discomfort, blood in stools or black stools and change in bowel habits Abdomen: N/A Bladder symptoms: No dysuria, gross hematuria, urinary frequency, urinary urgency, or incontinence Other issues: None Last Pap: 2022 normal HPV: negative PAST MEDICAL HISTORY Diagnosis Date NEGATIVE MEDICAL HISTORY PAST SURGICAL HISTORY Procedure Laterality Date PAST SURGICAL HISTORY OF wisdom teeth FAMILY HISTORY Problem Relation Age of Onset No Known Problems Mother Depression Father No Known Problems Sister No Known Problems Brother Hypertension Maternal Grandmother Diabetes Maternal Grandfather type 2 Alzheimer's Disease Paternal Grandmother Stroke Paternal Grandmother Seizures Paternal Grandmother No Known Problems Paternal Grandfather Social History Tobacco Use Smoking status: Never Smokeless tobacco: Never Vaping Use Vaping Use: Never used Substance Use Topics Alcohol use: No Drug use: No PHYSICAL EXAMINATION: BP 120/80 Wt 181 lb 9.6 oz (82.4kg) LMP 02/19/2022 GENERAL: pleasant, female in no apparent distress HEENT: Normocephalic, atraumatic, mucus membranes moist, and no lesions NECK: full range of motion DERMATOLOGY: Normal, without lesions, non-icteric, and non-hirsute BREAST: soft, non-tender, symmetric, no dominant mass, normal nipple-areolar complex, no lymphadenopathy, and no nipple discharge CHEST: Normal inspiratory effort ABDOMEN: soft, non-tender, and no masses. INCISION: N/A PELVIC: external genitalia normal, normal Bartholin's glands, urethra, Bowlegs's glands, no vulvar lesions, no cervical lesions, good vaginal support, physiologic discharge present, normal appearing perineal body and perianal region BIMANUAL: uterus normal size, shape and consistency, no adnexal masses, and non-tender NEURO: exam grossly non-focal EXTREMITIES: normal ASSESSMENT AND PLAN: 37 year old status post with normal course. Contraception plan: POP. Discussed recommended interval. - Flu shot today Follow up: RTC for annual exams and PRN Karen Dee DO [facility] 01-04-2023 History of Presen t illness Narrative Cutting Inspector offered: Patient declines. VISIT Jeremi Rainey is a 37 year old year old here for visit. Delivery Summary: 11/19/2022 ROS/ Recovery: Feeding: pumping and formula problems: Inadequate milk supply Menses since delivery: none Menstrual pattern prior to : Regular periods [place] since delivery: Not resumed Depression: denies symptoms of depression. OB Depression and Anxiety Screening- This Encounter (since 01/03/2023) Over the past 2 weeks have you felt down, depressed, or hopeless? Negative Over the past two weeks, have you felt little interest or pleasure in doing things? Negative Feeling nervous, anxious or on edge 1-Several days Not being able to stop or control worrying 0-Not al all Anxiety Pre-Screening Total (If >/= 3 additional questions will be reviewed) 1 Emotional support: Yes Bowel symptoms: Negative for abdominal discomfort, blood in stools or black stools and change in bowel habits Abdomen: N/A Bladder symptoms: No dysuria, gross hematuria, urinary frequency, urinary urgency, or incontinence Other issues: None Last Pap: 2022 normal HPV: negative PAST MEDICAL HISTORY Diagnosis Date NEGATIVE MEDICAL HISTORY PAST SURGICAL HISTORY Procedure Laterality Date PAST SURGICAL HISTORY OF wisdom teeth FAMILY HISTORY Problem Relation Age of Onset No Known Problems Mother Depression Father No Known Problems Sister No Known Problems Brother Hypertension Maternal Grandmother Diabetes Maternal Grandfather type 2 Alzheimer's Disease Paternal Grandmother Stroke Paternal Grandmother Seizures Paternal Grandmother No Known Problems Paternal Grandfather Social History Tobacco Use Smoking status: Never Smokeless tobacco: Never Vaping Use Vaping Use: Never used Substance Use Topics Alcohol use: No Drug use: No PHYSICAL EXAMINATION: BP 120/80 Wt 181 lb 9.6 oz (82.4kg) LMP 02/19/2022 GENERAL: pleasant, female in no apparent distress HEENT: Normocephalic, atraumatic, mucus membranes moist, and no lesions NECK: full range of motion DERMATOLOGY: Normal, without lesions, non-icteric, and non-hirsute BREAST: soft, non-tender, symmetric, no dominant mass, normal nipple-areolar complex, no lymphadenopathy, and no nipple discharge CHEST: Normal inspiratory effort ABDOMEN: soft, non-tender, and no masses. INCISION: N/A PELVIC: external genitalia normal, normal Bartholin's glands, urethra, Bowlegs's glands, no vulvar lesions, no cervical lesions, good vaginal support, physiologic discharge present, normal appearing perineal body and perianal region BIMANUAL: uterus normal size, shape and consistency, no adnexal masses, and non-tender NEURO: exam grossly non-focal EXTREMITIES: normal ASSESSMENT AND PLAN: 37 year old status post with normal course. Contraception plan: POP. Discussed recommended interval. - Flu shot today Follow up: RTC for annual exams and PRN Karen Dee DO documented in this encounter [facility] 12-24-2022 Miscellaneous Notes Formattin g of this note might be different from the original. Noted Rohit Pickens MD Patient called back in and stated pain has gotten more severe now. Planning to go to ER now for evaluation. Jana Rodriguez RN Patient delivered via 11/19/22. Calling with sudden onset LLQ pain that started about 2-3 hours ago. She was sitting holding daughter when it started. No strenuous activity this morning prior to it starting. Initially it was more severe and she took tylenol. Now rates 5/10 on pain scale. Pain is constant cramping starting in LLQ and radiating into left lower back. No urinary symptoms. Yesterday felt like she might start menses, but has not had any bleeding yet. She is currently pumping and feeding only. 6 week PP visit with ARY 01/04. Please advise. Jana Rodriguez RN documented in this encounter [facility] 12-17-2022 Miscellaneous Notes Formattin g of this note might be different from the original. Sorry to hear this. Carpal tunnel typically improves within weeks after delivery, but sometimes can take months. Nocturnal wrist splinting is usually my recommendation. If still not improving she would have to reach out to a general practitioner to see if there are injections or other tx options. If she has a PCP recommend calling them documented in this encounter [facility] 11-27-2022 Note HNO ID: [id number] Author: Karen Dee MD Service: ? Author Type: Physician Type: Progress Notes Filed: 12/04/2022 2:46 PM Note Text: EARLY VISIT Jeremi Rainey is a 37 year old here for 1 week visit. Delivery Summary: 11/19/2022 ROS: General: Denies any fever or chills Hypertension Screening: Headache? No. Visual Changes? No Epigastric Pain? No Increased Swelling? No Taking any BP medications at home? No If applicable, monitoring BP at home? (If Yes, include results) NA Mood: normal Depression: denies symptoms of depression. OB Depression and Anxiety Screening- This Encounter (since 11/26/2022) Over the past 2 weeks have you felt down, depressed, or hopeless? Negative Over the past two weeks, have you felt little interest or pleasure in doing things?? Negative Feeling nervous, anxious or on edge 1-Several days Not being able to stop or control worrying 0-Not al all Anxiety Pre-Screening Total (If >/= 3 additional questions will be reviewed) 1 Feeding: Breast feeding problems: Seeing fashion consultant sales Bladder: No dysuria, gross hematuria, urinary frequency, urinary urgency, or incontinence Bowel symptoms: Negative for abdominal discomfort, blood in stools or black stools and change in bowel habits Abdomen: N/A Bleeding: light flow Bottom and Perineum: No issues Sleep: no sleep concerns and sleeps in bassinet/crib in parent's room, feels rested [place] since delivery: Not resumed Emotional support: Yes Exercise: N/A Other issues: pain in both wrists PHYSICAL EXAMINATION: BP 100/64 Wt 178 lb 12.8 oz (81.1 kg) LMP 02/19/2022 (Exact Date) Yes BMI 28.86 kg/m? General: pleasant,female in no apparent distress, AANDO x 3. Skin warm and intact. Breast: Deferred Abdomen: soft, non-tender, and no masses /Incision: N/A Pelvic: Deferred Bimanual: Deferred ASSESSMENT AND PLAN: 37 year old status post with normal course. Contraception plan: Reinforced 6-week pelvic rest. Encouraged condom usage should patient deviate. Education: resources provided - see MA/RN note Discussed flu vaccine and she desires at next visit Follow up: Return to Clinic for 6 week visit and as needed Karen Dee DO [facility] 11-20-2022 Note HNO ID: [id number] Author: Jana Rodriguez RN Service: ? Author Type: ? Type: Progress Notes Filed: 11/20/2022 8:10 AM Note Text: Patient delivered via by Meir on 11/19/22 at [facility]. See OB history. Jana Rodriguez RN [facility] 11-20-2022 History of Presen t illness Narrative Patient delivered via by Meir on 11/19/22 at [facility]. See OB history. Jana Rodriguez RN documented in this encounter [facility] 11-19-2022 Miscellaneous Notes Formattin g of this note might be different from the original. Jeremi Rainey is a 37 year old female who presents at 39w0d as an add on visit for contractions. She was seen in office on Wednesday and was 0.5 cm. Started feeling contractions after that visit and exam. Small amount of blood seen after wiping. Contractions today continue to increase in intensity and frequency. Positive movement. Desires CE today. Breathing and rocking through contractions. CE- 4.5/80/0 head is low- bulging bag of water during contraction ASSESSMENT/PLAN: 1. 39 weeks gestation of - ICD9: V22.2, ICD10: Z3A.39 (primary diagnosis) 2. Uterine contractions - ICD9: 644.10, ICD10: O47.9 3. AMA (advanced maternal age) multigravida 35+, third trimester - ICD9: 659.63, ICD10: O09.523 Patient sent to L&D for admission for labor. Desires epidural anesthesia GBS negative Anticipate Dr. Pickens notified of admission RTO= post visit Lizabeth Ortiz APRN.CNM documented in this encounter [facility] 11-18-2022 Miscellaneous Notes Formattin g of this note might be different from the original. Left detailed message on voicemail. Jana Rodriguez RN This is normal after cervical check- so long as good movement. Ob patient is 38w6d and called stating that she was checked at office on 11/16/2022 and had bright red spotting after being checked and yesterday evening when using the restroom she noticed more pinkish-red spotting. Today spotting is brownish red and notices the spotting after using restroom when wiping and had a nickel size amount on panty liner. Denies cramping. No LOF. Can leave message if no answer documented in this encounter [facility] 11-16-2022 Miscellaneous Notes Formattin g of this note might be different from the original. RR- VB No. LOF No. CTXS No. Movement: present. Other c/o: No. Medication list reviewed. Physical Exam See Flow Sheet Abd: soft, nontender, gravid Ext: edema: Trace A/P 38w4d Estimated Date of Delivery: 11/26/22 kick counts NST starting at 40 weeks w/ AFV. Recommend delivery 39-40 weeks and will consider. . Rose Yin M.D. documented in this encounter [facility] 11-16-2022 Instructions Mounika Jamil Ma - 11/16/2022 3:57 PM EDT SEQUENTIAL SCREENINGS The [facility] offers sequential screenings for women who are interested in screenings for chromosomal abnormalities and certain defects during a . The sequential screen combines ultrasound and blood tests to determine the risk of chromosomal abnormalities, including Down's Syndrome (Trisomy 21) and Trisomy 18, as well as open neural tube defects including spina bifida. Ultrasound examination is performed between 11 weeks and 13 weeks gestational age. Blood tests are drawn after the ultrasound and again later in the between 15 and 21 weeks gestational age. Please let your physician know if you are interested in this testing. It will require an appointment with our robot technician. This is not an ultrasound performed by a physician in our office during a routine visit. SIGNS AND SYMPTOMS OF LABOR 1. Contractions every 10 minutes or more often 2. Clear, pink, or brownish fluid (water) leaking from vagina 3. Feeling that baby is pushing down, pressure 4. Low, dull backache 5. Cramps that feel like a period 6. Cramps with or without diarrhea If you notice any of the above symptoms, contact our office at [phone] and ask to speak with a nurse. After hours, you can call doctors registry at [phone] OR call [facility] at [phone] and ask to have the doctor automatic transmission mechanic paged. If you consider this an emergency, dial 9-1-9 or go to your nearest emergency department. NEED HELP? Are you dealing with a violent or abusive relationship? Are you a victim of rape or sexual assult? Call [facility] ([place]) 24 hour Crisis Hotline: 267.455.2292 or 346-013-5609. MANUAL Your Guide to a Healthy manual is now on-line. Visit [email or web address] [email or web address] to download your free copy documented in this encounter [facility] 11-10-2022 Miscellaneous Notes Formattin g of this note might be different from the original. KJ - No VB/LOF/ctxs. Reports FM. A&P: Reviewed labor & FM precautions Rohit Pickens MD documented in this encounter [facility] 11-10-2022 Instructions Masters Carly Masterson - 11/10/2022 3:52 PM EDT SEQUENTIAL SCREENINGS The [facility] offers sequential screenings for women who are interested in screenings for chromosomal abnormalities and certain defects during a . The sequential screen combines ultrasound and blood tests to determine the risk of chromosomal abnormalities, including Down's Syndrome (Trisomy 21) and Trisomy 18, as well as open neural tube defects including spina bifida. Ultrasound examination is performed between 11 weeks and 13 weeks gestational age. Blood tests are drawn after the ultrasound and again later in the between 15 and 21 weeks gestational age. Please let your physician know if you are interested in this testing. It will require an appointment with our robot technician. This is not an ultrasound performed by a physician in our office during a routine visit. SIGNS AND SYMPTOMS OF LABOR 1. Contractions every 10 minutes or more often 2. Clear, pink, or brownish fluid (water) leaking from vagina 3. Feeling that baby is pushing down, pressure 4. Low, dull backache 5. Cramps that feel like a period 6. Cramps with or without diarrhea If you notice any of the above symptoms, contact our office at [phone] and ask to speak with a nurse. After hours, you can call doctors registry at [phone] OR call [facility] at [phone] and ask to have the doctor automatic transmission mechanic paged. If you consider this an emergency, dial 9-1-4 or go to your nearest emergency department. NEED HELP? Are you dealing with a violent or abusive relationship? Are you a victim of rape or sexual assult? Call [facility] ([place]) 24 hour Crisis Hotline: 231.991.6104 or 619-073-0534. MANUAL Your Guide to a Healthy manual is now on-line. Visit [email or web address] [email or web address] to download your free copy documented in this encounter [facility] 10-20-2022 Miscellaneous Notes Formattin g of this note might be different from the original. DM- Pt doing well today. Denies Vaginal Bleeding, Leaking fluid, or contractions. Pt reports good movement. Kick counts reviewed. RTO 2 wks. Niki Yang MD documented in this encounter [facility] 10-20-2022 Instructions Damaris Escamilla Ma - 10/20/2022 2:38 PM EDT SEQUENTIAL SCREENINGS The [facility] offers sequential screenings for women who are interested in screenings for chromosomal abnormalities and certain defects during a . The sequential screen combines ultrasound and blood tests to determine the risk of chromosomal abnormalities, including Down's Syndrome (Trisomy 21) and Trisomy 18, as well as open neural tube defects including spina bifida. Ultrasound examination is performed between 11 weeks and 13 weeks gestational age. Blood tests are drawn after the ultrasound and again later in the between 15 and 21 weeks gestational age. Please let your physician know if you are interested in this testing. It will require an appointment with our robot technician. This is not an ultrasound performed by a physician in our office during a routine visit. SIGNS AND SYMPTOMS OF LABOR 1. Contractions every 10 minutes or more often 2. Clear, pink, or brownish fluid (water) leaking from vagina 3. Feeling that baby is pushing down, pressure 4. Low, dull backache 5. Cramps that feel like a period 6. Cramps with or without diarrhea If you notice any of the above symptoms, contact our office at [phone] and ask to speak with a nurse. After hours, you can call doctors registry at [phone] OR call [facility] at [phone] and ask to have the doctor automatic transmission mechanic paged. If you consider this an emergency, dial 9-4 or go to your nearest emergency department. NEED HELP? Are you dealing with a violent or abusive relationship? Are you a victim of rape or sexual assult? Call [facility] ([place]) 24 hour Crisis Hotline: 165.578.6004 or 589-453-6122. MANUAL Your Guide to a Healthy manual is now on-line. Visit [email or web address] [email or web address] to download your free copy documented in this encounter [facility] 10-05-2022 Miscellaneous Notes Formattin g of this note might be different from the original. Jeremi Rainey is a 37 year old female who presents at 32w4d Estimated Date of Delivery: 11/26/22 for a routine visit. Good movement. Denies headache, visual changes, chest pain, shortness of breath, vaginal bleeding, leakage of fluid, or dysuria. Feeling well, no complaints. Size equal to dates. 11 TWG. PTL precautions reviewed. RTC in 2 weeks or sooner if needed. Lizabeth Ortiz APRN.CNM documented in this encounter [facility] 10-05-2022 Ariel Almonte Cma - 10/05/2022 2:15 PM EDT SEQUENTIAL SCREENINGS The [facility] offers sequential screenings for women who are interested in screenings for chromosomal abnormalities and certain defects during a . The sequential screen combines ultrasound and blood tests to determine the risk of chromosomal abnormalities, including Down's Syndrome (Trisomy 21) and Trisomy 18, as well as open neural tube defects including spina bifida. Ultrasound examination is performed between 11 weeks and 13 weeks gestational age. Blood tests are drawn after the ultrasound and again later in the between 15 and 21 weeks gestational age. Please let your physician know if you are interested in this testing. It will require an appointment with our robot technician. This is not an ultrasound performed by a physician in our office during a routine visit. SIGNS AND SYMPTOMS OF LABOR 1. Contractions every 10 minutes or more often 2. Clear, pink, or brownish fluid (water) leaking from vagina 3. Feeling that baby is pushing down, pressure 4. Low, dull backache 5. Cramps that feel like a period 6. Cramps with or without diarrhea If you notice any of the above symptoms, contact our office at [phone] and ask to speak with a nurse. After hours, you can call doctors registry at [phone] OR call [facility] at [phone] and ask to have the doctor automatic transmission mechanic paged. If you consider this an emergency, dial 9-1-3 or go to your nearest emergency department. NEED HELP? Are you dealing with a violent or abusive relationship? Are you a victim of rape or sexual assult? Call [facility] ([place]) 24 hour Crisis Hotline: 788.936.2260 or 700-756-4593. MANUAL Your Guide to a Healthy manual is now on-line. Visit [email or web address] [email or web address] to download your free copy documented in this encounter [facility] 09-21-2022 Miscellaneous Notes Formattin g of this note might be different from the original. DM- Pt doing well today. Denies Vaginal Bleeding, Leaking fluid, or contractions. Pt reports good movement. S/p fall on Wednesday- does not think she directly hit abdomen. No ctx, no bleeding. Got rhogam. Needs rhogam at 40 weeks if still . RTO 2 weeks. Continue ASA. Kick counts reviewed. Niki Neyhart-Tran, MD documented in this encounter [facility] 09-21-2022 Instructions Damaris Escamilla Ma - 09/21/2022 1:28 PM EDT SEQUENTIAL SCREENINGS The [facility] offers sequential screenings for women who are interested in screenings for chromosomal abnormalities and certain defects during a . The sequential screen combines ultrasound and blood tests to determine the risk of chromosomal abnormalities, including Down's Syndrome (Trisomy 21) and Trisomy 18, as well as open neural tube defects including spina bifida. Ultrasound examination is performed between 11 weeks and 13 weeks gestational age. Blood tests are drawn after the ultrasound and again later in the between 15 and 21 weeks gestational age. Please let your physician know if you are interested in this testing. It will require an appointment with our robot technician. This is not an ultrasound performed by a physician in our office during a routine visit. SIGNS AND SYMPTOMS OF LABOR 1. Contractions every 10 minutes or more often 2. Clear, pink, or brownish fluid (water) leaking from vagina 3. Feeling that baby is pushing down, pressure 4. Low, dull backache 5. Cramps that feel like a period 6. Cramps with or without diarrhea If you notice any of the above symptoms, contact our office at [phone] and ask to speak with a nurse. After hours, you can call doctors registry at [phone] OR call [facility] at [phone] and ask to have the doctor automatic transmission mechanic paged. If you consider this an emergency, dial 9-1-5 or go to your nearest emergency department. NEED HELP? Are you dealing with a violent or abusive relationship? Are you a victim of rape or sexual assult? Call [facility] ([place]) 24 hour Crisis Hotline: 654.418.9935 or 007-030-1984. MANUAL Your Guide to a Healthy manual is now on-line. Visit [email or web address]/HealthyPre gnancyGuide to download your free copy documented in this encounter [facility] 09-18-2022 Note HNO ID: [id number] Author: Janine Diaz MD Service: ? Author Type: Physician Type: Progress Notes Filed: 09/18/2022 4:23 PM Note Text: visit completed [facility] 09-18-2022 History of Presen t illness Narrative visit completed documented in this encounter [facility] 09-07-2022 Note HNO ID: [id number] Author: Jana Rodriguez RN Service: ? Author Type: ? Type: Progress Notes Filed: 09/07/2022 11:33 PM Note Text: Jeremi Rainey 37 year old is here for her injection of Rhophylac. Jeremi Rainey Antibody Screen (no units) Date Value 04/24/2022 Negative Jeremi Rainey is RH Negative Rhophylac was given without incident. See immunizations for details of immunizations administered today. Provider Dr. Dee was present in office at time of injection Jeremi Rainey was given her Rhophylac pocket card. Jana Rodriguez RN [facility] 09-07-2022 Note HNO ID: [id number] Author: Britney Dee MA Service: ? Author Type: Mine Superintendent Type: Progress Notes Filed: 09/07/2022 11:33 PM Note Text: Patient identified by name and date of . Jeremi Rainey presents today for a vaccination of Tdap. Patient denies an allergy to latex: yes Patient denies a severe (life-threatening) allergy to a previous dose of Tdap, DTP, DTaP, DT or Td vaccine. Yes Patient denies history of epilepsy or neurological problems: Yes Patient is afebrile and denies being moderately or severely ill: Yes Patient denies history of Guillain-Ormsby Syndrome (a severe paralytic illness): Yes Tdap Adacel injection was given without incident. See immunizations for details of immunizations administered today. VIS sheet provided: Yes Provider Karen Dee DO was present in office at time of injection. Britney Dee MA [facility] 09-07-2022 History of Presen t illness Narrative Jeremi Rainey 37 year old is here for her injection of Rhophylac. Jeremi Rainey Antibody Screen (no units) Date Value 04/24/2022 Negative Jeremi Rainey is RH Negative Rhophylac was given without incident. See immunizations for details of immunizations administered today. Provider Dr. Dee was present in office at time of injection Jeremi Rainey was given her Rhophylac pocket card. Jana Rodriguez RN Patient identified by name and date of . Jeremi Rainey presents today for a vaccination of Tdap. Patient denies an allergy to latex: yes Patient denies a severe (life-threatening) allergy to a previous dose of Tdap, DTP, DTaP, DT or Td vaccine. Yes Patient denies history of epilepsy or neurological problems: Yes Patient is afebrile and denies being moderately or severely ill: Yes Patient denies history of Guillain-Ormsby Syndrome (a severe paralytic illness): Yes Tdap Adacel injection was given without incident. See immunizations for details of immunizations administered today. VIS sheet provided: Yes Provider Karen Dee DO was present in office at time of injection. Britney Dee MA documented in this encounter [facility] 09-07-2022 Miscellaneous Notes Formattin g of this note might be different from the original. SW- No ctx, pain, vb, lof. Good FM. 28 wk labs today. LARC signed. Tdap and Rhogam today. RTO 2 wks. Karen Dee DO documented in this encounter [facility] 09-07-2022 Instructions Perla Baird APRN.[place]OR[place]INO - 09/07/2022 2:46 PM EDT In person and online childbirth options: 1) [facility] Online Virtual Childbirth and Class. -Please call to register and for more information: [phone] and register for our online classes they are $40 for both or $20 for just the class ?? 2) [facility] Online Childbirth Education, , and [place] classes: [email or web address] 3) Here is a list of online childbirth education and resources. [facility] has online childbirth, , and parenting classes. [email or web address]://[email or web address], type in childbirth https://[email or web address] /childbirth-class/ https://blissful[employer]/p/empoweredmamasguide https://mamanaturalbirth.com/ SIGNS AND SYMPTOMS OF LABOR 1. Contractions every 10 minutes or more often 2. Clear, pink, or brownish fluid (water) leaking from vagina 3. Feeling that baby is pushing down, pressure 4. Low, dull backache 5. Cramps that feel like a period 6. Cramps with or without diarrhea If you notice any of the above symptoms, contact our office at [phone] and ask to speak with a nurse. After hours, you can call doctors registry at [phone] OR call [facility] at [phone] and ask to have the doctor automatic transmission mechanic paged. If you consider this an emergency, dial 9-1-8 or go to your nearest emergency department. NEED HELP? Are you dealing with a violent or abusive relationship? Are you a victim of rape or sexual assult? Call [facility] ([facility] 24 hour Crisis Hotline: 459.295.4228 or 203-255-2325. MANUAL Your Guide to a Healthy manual is now on-line. Visit [email or web address]/HealthyPre gnancyGuide to download your free copy documented in this encounter [facility] 08-25-2022 Miscellaneous Notes Formattin g of this note might be different from the original. Pt returned call and was assisted to reschedule this appointment as mentioned below. Lilia Paris LPN Pt scheduled to see SW on Wednesday, patient will be 27wks 1 day and needs rhogam. LM for patient to call back to r/s for a week later. Britney Dee MA documented in this encounter [facility] 08-07-2022 Miscellaneous Notes Formattin g of this note might be different from the original. KJ - No VB/LOF/ctxs. Reports good FM. She reports some LE swelling. A&P: AMA - continue ASA LE swelling - discussed low salt diet & hydration 28wk labs & rhogam at next visit Reviewed PTL & FM precautions Rohit Pickens MD documented in this encounter [facility] 08-07-2022 Castro Coon Ma - 08/07/2022 8:19 AM EDT SEQUENTIAL SCREENINGS The [facility] offers sequential screenings for women who are interested in screenings for chromosomal abnormalities and certain defects during a . The sequential screen combines ultrasound and blood tests to determine the risk of chromosomal abnormalities, including Down's Syndrome (Trisomy 21) and Trisomy 18, as well as open neural tube defects including spina bifida. Ultrasound examination is performed between 11 weeks and 13 weeks gestational age. Blood tests are drawn after the ultrasound and again later in the between 15 and 21 weeks gestational age. Please let your physician know if you are interested in this testing. It will require an appointment with our robot technician. This is not an ultrasound performed by a physician in our office during a routine visit. SIGNS AND SYMPTOMS OF LABOR 1. Contractions every 10 minutes or more often 2. Clear, pink, or brownish fluid (water) leaking from vagina 3. Feeling that baby is pushing down, pressure 4. Low, dull backache 5. Cramps that feel like a period 6. Cramps with or without diarrhea If you notice any of the above symptoms, contact our office at [phone] and ask to speak with a nurse. After hours, you can call doctors registry at [phone] OR call [facility] at [phone] and ask to have the doctor automatic transmission mechanic paged. If you consider this an emergency, dial 7-- or go to your nearest emergency department. NEED HELP? Are you dealing with a violent or abusive relationship? Are you a victim of rape or sexual assult? Call [facility] ([place]) 24 hour Crisis Hotline: 886.225.8550 or 817-379-0733. MANUAL Your Guide to a Healthy manual is now on-line. Visit [email or web address] to download your free copy documented in this encounter [facility] 07-10-2022 Miscellaneous Notes Formattin g of this note might be different from the original. DM- Pt doing well today. Denies Vaginal Bleeding, Leaking fluid, or contractions. Pt reports good movement. Anatomy us today- GIRL. Taking ASA. RTO 4 wk. Niki Yang MD documented in this encounter [facility] 07-10-2022 Instructions Damaris Escamilla Ma - 07/10/2022 2:09 PM EDT SEQUENTIAL SCREENINGS The [facility] offers sequential screenings for women who are interested in screenings for chromosomal abnormalities and certain defects during a . The sequential screen combines ultrasound and blood tests to determine the risk of chromosomal abnormalities, including Down's Syndrome (Trisomy 21) and Trisomy 18, as well as open neural tube defects including spina bifida. Ultrasound examination is performed between 11 weeks and 13 weeks gestational age. Blood tests are drawn after the ultrasound and again later in the between 15 and 21 weeks gestational age. Please let your physician know if you are interested in this testing. It will require an appointment with our robot technician. This is not an ultrasound performed by a physician in our office during a routine visit. SIGNS AND SYMPTOMS OF LABOR 1. Contractions every 10 minutes or more often 2. Clear, pink, or brownish fluid (water) leaking from vagina 3. Feeling that baby is pushing down, pressure 4. Low, dull backache 5. Cramps that feel like a period 6. Cramps with or without diarrhea If you notice any of the above symptoms, contact our office at [phone] and ask to speak with a nurse. After hours, you can call doctors registry at [phone] OR call [facility] at [phone] and ask to have the doctor automatic transmission mechanic paged. If you consider this an emergency, dial 9-1- or go to your nearest emergency department. NEED HELP? Are you dealing with a violent or abusive relationship? Are you a victim of rape or sexual assult? Call [facility] ([place]) 24 hour Crisis Hotline: 680.456.7462 or 747-845-5377. MANUAL Your Guide to a Healthy manual is now on-line. Visit [email or web address] to download your free copy documented in this encounter [facility] 06-19-2022 Miscellaneous Notes Formattin g of this note might be different from the original. DM- Pt doing well today. Denies Vaginal Bleeding, Leaking fluid, or cramping. Did not start ASA, will do that. Anatomy us scheduled. RTO 4 wks. Niki Yang MD documented in this encounter [facility] 06-19-2022 Instructions Niki Tran MD - 06/19/2022 3:49 PM EDT ASPIRIN 162mg (2 baby) SEQUENTIAL SCREENINGS The [facility] offers sequential screenings for women who are interested in screenings for chromosomal abnormalities and certain defects during a . The sequential screen combines ultrasound and blood tests to determine the risk of chromosomal abnormalities, including Down's Syndrome (Trisomy 21) and Trisomy 18, as well as open neural tube defects including spina bifida. Ultrasound examination is performed between 11 weeks and 13 weeks gestational age. Blood tests are drawn after the ultrasound and again later in the between 15 and 21 weeks gestational age. Please let your physician know if you are interested in this testing. It will require an appointment with our robot technician. This is not an ultrasound performed by a physician in our office during a routine visit. SIGNS AND SYMPTOMS OF LABOR 1. Contractions every 10 minutes or more often 2. Clear, pink, or brownish fluid (water) leaking from vagina 3. Feeling that baby is pushing down, pressure 4. Low, dull backache 5. Cramps that feel like a period 6. Cramps with or without diarrhea If you notice any of the above symptoms, contact our office at [phone] and ask to speak with a nurse. After hours, you can call doctors registry at [phone] OR call [facility] at [phone] and ask to have the doctor automatic transmission mechanic paged. If you consider this an emergency, dial 9--1 or go to your nearest emergency department. NEED HELP? Are you dealing with a violent or abusive relationship? Are you a victim of rape or sexual assult? Call [facility] ([place]) 24 hour Crisis Hotline: 464.207.4143 or 034-338-8438. MANUAL Your Guide to a Healthy manual is now on-line. Visit [email or web address] to download your free copy documented in this encounter [facility] 05-22-2022 Miscellaneous Notes Formattin g of this note might be different from the original. RM- Pt doing well today. Denies Vaginal Bleeding, cramping, or N/V. OTC 4 weeks. Anatomy scan scheduled. Rochelle Sevilla APRN.CNP documented in this encounter [facility] 05-22-2022 Castro Coon Ma - 05/22/2022 8:20 AM EDT SEQUENTIAL SCREENINGS The [facility] offers sequential screenings for women who are interested in screenings for chromosomal abnormalities and certain defects during a . The sequential screen combines ultrasound and blood tests to determine the risk of chromosomal abnormalities, including Down's Syndrome (Trisomy 21) and Trisomy 18, as well as open neural tube defects including spina bifida. Ultrasound examination is performed between 11 weeks and 13 weeks gestational age. Blood tests are drawn after the ultrasound and again later in the between 15 and 21 weeks gestational age. Please let your physician know if you are interested in this testing. It will require an appointment with our robot technician. This is not an ultrasound performed by a physician in our office during a routine visit. SIGNS AND SYMPTOMS OF LABOR 1. Contractions every 10 minutes or more often 2. Clear, pink, or brownish fluid (water) leaking from vagina 3. Feeling that baby is pushing down, pressure 4. Low, dull backache 5. Cramps that feel like a period 6. Cramps with or without diarrhea If you notice any of the above symptoms, contact our office at [phone] and ask to speak with a nurse. After hours, you can call doctors registry at [phone] OR call [facility] at [phone] and ask to have the doctor automatic transmission mechanic paged. If you consider this an emergency, dial 9-1-7 or go to your nearest emergency department. NEED HELP? Are you dealing with a violent or abusive relationship? Are you a victim of rape or sexual assult? Call [facility] ([place]) 24 hour Crisis Hotline: 719.784.8671 or 103-095-9221. MANUAL Your Guide to a Healthy manual is now on-line. Visit [email or web address] to download your free copy documented in this encounter [facility] 04-24-2022 Note HNO ID: [id number] Author: Karen Dee MD Service: ? Author Type: Physician Type: Progress Notes Filed: 04/24/2022 1:22 PM Note Text: Cutting Inspector offered: Patient declines. INITIAL OB ASSESSMENT OB Provider: Karen Dee DO HPI: Jeremi Rainey is a 36 year old female here to establish Obstetrical Care. Patient's last menstrual period was 02/19/2022 (exact date). from OB Dating Form. Cycle length: 28 days Complaints: nausea controlled with B6 was planned. OB History T0 L0 SAB0 IAB0 Ectopic0 Multiple0 Live Births0 Comment: Pt believes she had 2 chemical pregnancies Prior : never History of 4th degree laceration: No Patient's Risk Screening for delivery: History of abnormal pap: No Prior treatment for cervical dysplasia: none. 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 No Marital Status: Partner: Name: Robert PAST MEDICAL HISTORY Diagnosis Date NEGATIVE MEDICAL HISTORY PAST SURGICAL HISTORY Procedure Laterality Date PAST SURGICAL HISTORY OF wisdom teeth Current Outpatient Medications on File Prior to Visit Medication Sig albuterol HFA (PROVENTIL HFA, VENTOLIN HFA) 90 mcg/actuation inhaler azithromycin (ZITHROMAX) 250 mg tablet pyridoxine, vitamin B6, (VITAMIN B6) 100 mg tablet Take 100 mg by mouth once daily. VITAFUSION GUMMY TChS Take by mouth. No current facility-administered medications on file prior to visit. Review of Systems: GENERAL: Negative for: Fever or Chills HEENT: Negative for: Headache, Impaired Vision, Ringing in Ears, Nosebleeds NECK: Negative for: Swelling, Pain, Stiffness RESPIRATORY: Negative for: Cough, Shortness of breath, Wheezing GASTROINTESTINAL: Negative for: Heartburn, Constipation, Diarrhea, Blood in stool, Vomiting MUSCULOSKELETAL: Negative for: Muscle or joint pain, stiffness, Joint swelling NEUROLOGIC/PSYCHIATRIC: Negative for: Weakness, Paralysis, Numbness, Tingling, Tremor, Anxiety, Depression, Memory loss SKIN: Negative for: Rash, Itching GENITOURINARY: Negative for: vaginal itching, vaginal discharge, hematuria or dysuria PHYSICAL EXAM: BP 100/70 Ht 5' 6 (1.68m) Wt 176 lb 6.4 oz (80.0kg) LMP 02/19/2022 BMI 28.49 kg/(m2). GENERAL: pleasant female in no apparent distress DERMATOLOGY: Normal, without lesions, non-icteric, and non-hirsute NECK: full range of motion CHEST: Normal inspiratory effort BREAST: soft, non-tender, symmetric, no dominant mass, normal nipple-areolar complex, no lymphadenopathy, and no nipple discharge ABDOMEN: soft, non-tender, and no masses NEURO: exam grossly non-focal PELVIS: External genitalia normal without lesions. Perineal body intact. No vaginal or cervical lesions. Cervix closed. Uterus 9 week size. No adnexal masses or tenderness. Clinical Pelvimetry: Pelvimetry clinically assessed as adequate Limited OB ultrasound exam: single intrauterine , positive cardiac activity, and crown-rump length 9w0d OB Risk Screening: Completed, positive findings include: Patient will be less than 17 or greater than 34 at the time of Delivery ASSESSMENT: 36 year old at 9 wks gestational age PLAN: 1) Patient oriented to practice. Discussed nutrition, folic acid supplementation, dietary guidelines, exercise, smoking, alcohol, caffeine, and drug use. Discussed routine OB labs including STD/HIV. Discussed aneuploidy screening options including serum screening and nuchal translucency. Patient declines all aneuploidy screening. Carrier screening discussed and declined. Discussed AMA. See problem list. Follow up in 4 weeks or sooner prn. Karen Dee DO [facility] 04-24-2022 History of Presen t illness Narrative Cutting Inspector offered: Patient declines. INITIAL OB ASSESSMENT OB Provider: Karen Dee DO HPI: Jeremi Rainey is a 36 year old female here to establish Obstetrical Care. Patient's last menstrual period was 02/19/2022 (exact date). from OB Dating Form. Cycle length: 28 days Complaints: nausea controlled with B6 was planned. OB History T0 L0 SAB0 IAB0 Ectopic0 Multiple0 Live Births0 Comment: Pt believes she had 2 chemical pregnancies Prior : never History of 4th degree laceration: No Patient's Risk Screening for delivery: History of abnormal pap: No Prior treatment for cervical dysplasia: none. 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 No Marital Status: Partner: Name: Robert PAST MEDICAL HISTORY Diagnosis Date NEGATIVE MEDICAL HISTORY PAST SURGICAL HISTORY Procedure Laterality Date PAST SURGICAL HISTORY OF wisdom teeth Current Outpatient Medications on File Prior to Visit Medication Sig albuterol HFA (PROVENTIL HFA, VENTOLIN HFA) 90 mcg/actuation inhaler azithromycin (ZITHROMAX) 250 mg tablet pyridoxine, vitamin B6, (VITAMIN B6) 100 mg tablet Take 100 mg by mouth once daily. VITAFUSION GUMMY TChS Take by mouth. No current facility-administered medications on file prior to visit. Review of Systems: GENERAL: Negative for: Fever or Chills HEENT: Negative for: Headache, Impaired Vision, Ringing in Ears, Nosebleeds NECK: Negative for: Swelling, Pain, Stiffness RESPIRATORY: Negative for: Cough, Shortness of breath, Wheezing GASTROINTESTINAL: Negative for: Heartburn, Constipation, Diarrhea, Blood in stool, Vomiting MUSCULOSKELETAL: Negative for: Muscle or joint pain, stiffness, Joint swelling NEUROLOGIC/PSYCHIATRIC: Negative for: Weakness, Paralysis, Numbness, Tingling, Tremor, Anxiety, Depression, Memory loss SKIN: Negative for: Rash, Itching GENITOURINARY: Negative for: vaginal itching, vaginal discharge, hematuria or dysuria PHYSICAL EXAM: BP 100/70 Ht 5' 6 (1.68m) Wt 176 lb 6.4 oz (80.0kg) LMP 02/19/2022 BMI 28.49 kg/(m^2). GENERAL: pleasant female in no apparent distress DERMATOLOGY: Normal, without lesions, non-icteric, and non-hirsute NECK: full range of motion CHEST: Normal inspiratory effort BREAST: soft, non-tender, symmetric, no dominant mass, normal nipple-areolar complex, no lymphadenopathy, and no nipple discharge ABDOMEN: soft, non-tender, and no masses NEURO: exam grossly non-focal PELVIS: External genitalia normal without lesions. Perineal body intact. No vaginal or cervical lesions. Cervix closed. Uterus 9 week size. No adnexal masses or tenderness. Clinical Pelvimetry: Pelvimetry clinically assessed as adequate Limited OB ultrasound exam: single intrauterine , positive cardiac activity, and crown-rump length 9w0d OB Risk Screening: Completed, positive findings include: Patient will be less than 17 or greater than 34 at the time of Delivery ASSESSMENT: 36 year old at 9 wks gestational age PLAN: 1) Patient oriented to practice. Discussed nutrition, folic acid supplementation, dietary guidelines, exercise, smoking, alcohol, caffeine, and drug use. Discussed routine OB labs including STD/HIV. Discussed aneuploidy screening options including serum screening and nuchal translucency. Patient declines all aneuploidy screening. Carrier screening discussed and declined. Discussed AMA. See problem list. Follow up in 4 weeks or sooner prn. Karen Dee DO documented in this encounter [facility] 04-24-2022 Instructions Karen Dee MD - 04/24/2022 11:14 AM EST Ferrous Sulfate 325 mg by mouth either every other day or Please select the following link to access the [facility] Your Guide to a Healthy . [email or web address] documented in this encounter [facility] 04-16-2022 Miscellaneous Notes Formattin g of this note might be different from the original. DISTANCE HEALTH VISIT This Team Access Model visit is a phone encounter. It required patient-provider interaction for the medical decision making as documented below. Jeremi Rainey is a 36 year old female seen for PNOB. Advanced maternal age discussed. Noninvasive and invasive testing options discussed. Patient declines aneuploidy screening and genetic carrier screening testing. Patient is currently being treated for a cough and bronchitis diagnosed April 15. Awaiting chest x-ray results for possible pneumonia.Patient is complaining of nausea and occasional vomiting in . Dietary considerations discussed . Patient currently taking Vitamin B6 . Advised patient to call/come in if she is unable to keep any food or fluids down in a 24-hour period.Jessie Marlow RN documented in this encounter [facility] 07-16-2021 Miscellaneous Notes The caller is calling to give a condition update. She called over the weekend on 07/14. Pregancy test positive. Vagina bleeding. Complains of vaginal bleeding today like a menses. No heavy bleeding. Advised her to call Rochelle Sevilla's office when open today and she agreed documented in this encounter [facility] 07-14-2021 Miscellaneous Notes Reason for call: Patient calling stating she took a test and tested positive, she is having some bleeding and would like to speak to OBGYN office. Outcome: Patient warm conferenced to [place] runstitching machine operator [phone] for further assistance. documented in this encounter [facility] documented [facility] encounter [facility] Diagnosis Advanced maternal age, primigravida, antepartum- Primary Elderly primigravida, antepartum Encounter for care in first trimester of first [facility] [place] [facility] Diagnosis OPENED IN ERROR- Primary To allow closing an encounter opened in error (used in SmartSet) documented [facility] [place] [facility]* Diagnosis Advanced maternal age, primigravida, antepartum- Primary Elderly primigravida, antepartum 13 weeks gestation of state, incidental [facility] encounter [facility] [place] [facility]* Diagnosis AMA (advanced maternal age) primigravida 35+, second trimester- Primary 17 weeks gestation of state, incidental [facility] [place] [facility]* Diagnosis Encounter for anatomic survey- Primary Multigravida of advanced maternal age in second trimester 20 weeks gestation of state, incidental [facility] [place] [facility]* Diagnosis AMA (advanced maternal age) primigravida 35+, second trimester- Primary 20 weeks gestation of state, incidental [facility] [place] [facility]* Diagnosis Advanced maternal age, primigravida, antepartum- Primary Elderly primigravida, antepartum Rh negative state in antepartum period Rhesus isoimmunization affecting management of mother, antepartum condition 24 weeks gestation of state, incidental [facility] [place] [facility]* Diagnosis Advanced maternal age, primigravida, antepartum- Primary Elderly primigravida, antepartum 28 weeks gestation of state, incidental Need for vaccination Need for prophylactic vaccination and inoculation against unspecified single disease Rh negative state in antepartum period Rhesus isoimmunization affecting management of mother, antepartum condition documented in this encounter [facility] note* Diagnosis MEET WITH PHYSICIAN- Primary documented in this encounter [facility] note* Diagnosis AMA (advanced maternal age) primigravida 35+, second trimester- Primary Rh negative state in antepartum period Rhesus isoimmunization affecting management of mother, antepartum condition 30 weeks gestation of state, incidental documented in this encounter [facility] note* Diagnosis 32 weeks gestation of - Primary state, incidental documented in this encounter [facility] note* Diagnosis AMA (advanced maternal age) primigravida 35+, second trimester- Primary 34 weeks gestation of state, incidental Rh negative state in antepartum period Rhesus isoimmunization affecting management of mother, antepartum condition documented in this encounter [facility] note* Diagnosis 37 weeks gestation of - Primary state, incidental Advanced maternal age, primigravida in third trimester, antepartum documented in this encounter [facility] note* Diagnosis 38 weeks gestation of - Primary state, incidental AMA (advanced maternal age) multigravida 35+, third trimester Encounter for supervision of normal first in third trimester Supervision of normal first documented in this encounter [facility] note* Diagnosis 39 weeks gestation of - Primary state, incidental Uterine contractions AMA (advanced maternal age) multigravida 35+, third trimester documented in this encounter [facility] note* Diagnosis care and examination- Primary Routine follow-up Need for influenza vaccination Need for prophylactic vaccination and inoculation against influenza Encounter for initial prescription of contraceptive pills General counseling for prescription of oral contraceptives documented in this encounter [facility] for referral (narrative)* Diagnostic Procedure Only (Routine) - Authorized Specialty Diagnoses / Procedures Referred By Crissy arevalo Referred To Contact [facility] Diagnoses Advanced maternal age, primigravida, antepartum Encounter for care in first trimester of first Procedures OBSTETRIC ULTRASOUND WHI US PREG UTERUS AFTER 1ST TRIMEST GESTATION Karen Dee MD [address] [place] [address] [facility] [address] [place] [address] Referral ID Status Reason Start Date Expiration Date Visits Requested Visits Authorized [id number] Authorized Auto-Generat ed Referral 04/24/2022 04/24/2023 1 1 [facility] Health Concerns Problem Noted Date OB Reminders 04/24/2022 Problem Noted Date OB Reminders 04/24/2022 Problem Noted Date OB Reminders 04/24/2022 Problem Noted Date OB Reminders 04/24/2022 Problem Noted Date OB Reminders 04/24/2022 Problem Noted Date OB Reminders 04/24/2022 Problem Noted Date Diagnosed Date OB Reminders 04/24/2022 Problem Noted Date Diagnosed Date OB Reminders 04/24/2022 Problem Noted Date Diagnosed Date OB Reminders 04/24/2022 Problem Noted Date Diagnosed Date OB Reminders 04/24/2022 Problem Noted Date Diagnosed Date OB Reminders 04/24/2022 Problem Noted Date Diagnosed Date OB Reminders 04/24/2022 Problem Noted Date Diagnosed Date OB Reminders 04/24/2022 Problem Noted Date Diagnosed Date OB Reminders 04/24/2022 Problem Noted Date Diagnosed Date OB Reminders 04/24/2022 Summary Purpose Family History No Family History Records Found Advance Directives No Advanced Directives Records Found Additional Source Comments Source Comments (unrecognize d section and content) In the event this informatio n is protected by the Federal Confidentiality of Alcohol and Drug Abuse Patient Records regulations: The Federal rules restrict any use of the information to criminally investigate or prosecute any alcohol or drug abuse patient.[facility] HospitalIn the event this information is protected by the Federal Confidentiality of Alcohol and Drug Abuse Patient Records regulations: The Federal rules restrict any use of the information to criminally investigate or prosecute any alcohol or drug abuse patient.[facility] HospitalIn the event this information is protected by the Federal Confidentiality of Alcohol and Drug Abuse Patient Records regulations: The Federal rules restrict any use of the information to criminally investigate or prosecute any alcohol or drug abuse patient.[facility] HospitalIn the event this information is protected by the Federal Confidentiality of Alcohol and Drug Abuse Patient Records regulations: The Federal rules restrict any use of the information to criminally investigate or prosecute any alcohol or drug abuse patient.[facility] HospitalIn the event this information is protected by the Federal Confidentiality of Alcohol and Drug Abuse Patient Records regulations: The Federal rules restrict any use of the information to criminally investigate or prosecute any alcohol or drug abuse patient.[facility] HospitalIn the event this information is protected by the Federal Confidentiality of Alcohol and Drug Abuse Patient Records regulations: The Federal rules restrict any use of the information to criminally investigate or prosecute any alcohol or drug abuse patient.[facility] HospitalIn the event this information is protected by the Federal Confidentiality of Alcohol and Drug Abuse Patient Records regulations: The Federal rules restrict any use of the information to criminally investigate or prosecute any alcohol or drug abuse patient.[facility] HospitalIn the event this information is protected by the Federal Confidentiality of Alcohol and Drug Abuse Patient Records regulations: The Federal rules restrict any use of the information to criminally investigate or prosecute any alcohol or drug abuse patient.[facility] HospitalIn the event this information is protected by the Federal Confidentiality of Alcohol and Drug Abuse Patient Records regulations: The Federal rules restrict any use of the information to criminally investigate or prosecute any alcohol or drug abuse patient.[facility] HospitalIn the event this information is protected by the Federal Confidentiality of Alcohol and Drug Abuse Patient Records regulations: The Federal rules restrict any use of the information to criminally investigate or prosecute any alcohol or drug abuse patient.[facility] HospitalIn the event this information is protected by the Federal Confidentiality of Alcohol and Drug Abuse Patient Records regulations: The Federal rules restrict any use of the information to criminally investigate or prosecute any alcohol or drug abuse patient.[facility] HospitalIn the event this information is protected by the Federal Confidentiality of Alcohol and Drug Abuse Patient Records regulations: The Federal rules restrict any use of the information to criminally investigate or prosecute any alcohol or drug abuse patient.[facility] HospitalIn the event this information is protected by the Federal Confidentiality of Alcohol and Drug Abuse Patient Records regulations: The Federal rules restrict any use of the information to criminally investigate or prosecute any alcohol or drug abuse patient.[facility] HospitalIn the event this information is protected by the Federal Confidentiality of Alcohol and Drug Abuse Patient Records regulations: The Federal rules restrict any use of the information to criminally investigate or prosecute any alcohol or drug abuse patient.[facility] HospitalIn the event this information is protected by the Federal Confidentiality of Alcohol and Drug Abuse Patient Records regulations: The Federal rules restrict any use of the information to criminally investigate or prosecute any alcohol or drug abuse patient.[facility] HospitalIn the event this information is protected by the Federal Confidentiality of Alcohol and Drug Abuse Patient Records regulations: The Federal rules restrict any use of the information to criminally investigate or prosecute any alcohol or drug abuse patient.[facility] HospitalIn the event this information is protected by the Federal Confidentiality of Alcohol and Drug Abuse Patient Records regulations: The Federal rules restrict any use of the information to criminally investigate or prosecute any alcohol or drug abuse patient.[facility] HospitalIn the event this information is protected by the Federal Confidentiality of Alcohol and Drug Abuse Patient Records regulations: The Federal rules restrict any use of the information to criminally investigate or prosecute any alcohol or drug abuse patient.[facility] HospitalIn the event this information is protected by the Federal Confidentiality of Alcohol and Drug Abuse Patient Records regulations: The Federal rules restrict any use of the information to criminally investigate or prosecute any alcohol or drug abuse patient.[facility] HospitalIn the event this information is protected by the Federal Confidentiality of Alcohol and Drug Abuse Patient Records regulations: The Federal rules restrict any use of the information to criminally investigate or prosecute any alcohol or drug abuse patient.[facility] HospitalIn the event this information is protected by the Federal Confidentiality of Alcohol and Drug Abuse Patient Records regulations: The Federal rules restrict any use of the information to criminally investigate or prosecute any alcohol or drug abuse patient.[facility] HospitalIn the event this information is protected by the Federal Confidentiality of Alcohol and Drug Abuse Patient Records regulations: The Federal rules restrict any use of the information to criminally investigate or prosecute any alcohol or drug abuse patient.[facility] HospitalIn the event this information is protected by the Federal Confidentiality of Alcohol and Drug Abuse Patient Records regulations: The Federal rules restrict any use of the information to criminally investigate or prosecute any alcohol or drug abuse patient.[facility] HospitalIn the event this information is protected by the Federal Confidentiality of Alcohol and Drug Abuse Patient Records regulations: The Federal rules restrict any use of the information to criminally investigate or prosecute any alcohol or drug abuse patient.[facility] HospitalIn the event this information is protected by the Federal Confidentiality of Alcohol and Drug Abuse Patient Records regulations: The Federal rules restrict any use of the information to criminally investigate or prosecute any alcohol or drug abuse patient.[facility] Reason for Visit (unrecogniz ed section and content) Reason Comments Vaginal Bleeding Reason Comments Care Reason Comments Care Reason Comments Opened In Error Reason Onset Date Comments Care 05/22/2022 Reason Onset Date Comments Care 06/19/2022 Reason Comments US Specialty Diagnoses / Procedures Referred By Contreba t Referred To Contact [facility] Diagnoses Advanced maternal age, primigravida, antepartum Encounter for care in first trimester of first Procedures OBSTETRIC ULTRASOUND WHI US PREG UTERUS AFTER 1ST TRIMEST GESTATION Karen Dee MD [address] [place] [address] [facility] [address] [facility] [place] [address] Referral ID Status Reason Start Date Expiration Date V isits Requested Visits Authorized [id number] Closed Auto-Generate d Referral 04/24/2022 04/24/2023 1 1 Reason Onset Date Comments Care 07/10/2022 Reason Onset Date Comments Care 08/07/2022 Reason Comments Appointment Reason Onset Date Comments Care 09/07/2022 Reason Comments Meet and great Due 11/26/22 Reason Onset Date Comments Care 09/21/2022 Reason Onset Date Comments Care 10/05/2022 Reason Onset Date Comments Care 10/20/2022 Reason Onset Date Comments Care 11/10/2022 Reason Onset Date Comments Care 11/16/2022 Reason Comments Ob Delivery Note Reason Comments Pelvic Pain Care Reason Onset Date Comments Immunizations 01/04/2023 Flu vaccination INFORMATION SOURCE (unrecogn ized section and content) FOR RECORDS PERTAINING TO PATIENTS WHO ARE OR HAVE BEEN ENROLLED IN A CHEMICAL DEPENDENCY/SUBSTANCEABUSE PROGRAM, SOME INFORMATION MAY BE OMITTED. This clinical summary was aggregated from multiple sources. Caution should be exercised in using it in the provision of clinical care. This summary normalizes information from multiple sources, and as a consequence, information in this document may materially change the coding, format and clinical context of patient data. In addition, data may be omitted in some cases. CLINICAL DECISIONS SHOULD BE BASED ON THE PRIMARY CLINICAL RECORDS. [facility]. provides no warranty or guarantee of the accuracy or completeness of information in this document.
[2023-04-01 17:48] LABS: Absolute Lymphocyte Count 4.19 X10^3/uL (0.83-4.51); Absolute Neutrophil Count 7.2 X10^3/uL (2.0-7.7); Basophil# 0.08 X10^3/uL; Basophil% 0.6 % (0-1); Eosinophil# 0.16 X10^3/uL; Eosinophils% 1.3 % (0-5); Hematocrit 44.6 % (37-47); Hemoglobin 14.8 g/dL (12.0-15.0); Lymphocyte # 4.19 X10^3/ul (0.83-4.51); Lymphocyte % 33.9 % (19-41); Mean Corp Hgb Conc 33.2 g/dL (32-36); Mean Corpuscular Hgb 29.4 pg (27.0-32.0); Mean Corpuscular Volume 88.5 fL (81-99); Mean Platelet Vol. 9.7 fl (6.2-12.0); Monocyte# 0.74 X10^3/uL; NRBC Flagged by Analyzer 0 % (0-5); Neutrophil # 7.16 X10^3/uL (2.7-7.7); Neutrophil % 57.9 % (47-70); Platelet Count 358 K/mm3 (150-450); RBC Distribution Width CV 12.5 % (11.6-14.6); RBC Distribution Width SD 40.7 fl (35.1-43.9); Red Blood Count 5.04 M/mm3 (4.2-5.4); White Blood Count 12.4 K/mm3 (4.4-11.0)
[2023-04-01 18:39] LABS: Thyroid Stim Hormone (TSH) 2.37 uIU/mL (0.358-3.74)
== END | disposition home or self-care (01) ==
LOC: MFPLAB 16:59
PROVIDERS: Nurse Practitioner Family; PCP Family Medicine; Visit Provider Family Medicine
DX: R53.83 Other fatigue (principal); N93.9 Abnormal uterine and vaginal bleeding, unspecified
CPT/HCPCS: 36415; 84443; 85025

== ENCOUNTER → 2023-04-23 | Outpatient (CLI) | payer OTHER, SELFPAY ==
--- OUTSIDE RECORDS SUMMARY | 2023-04-23 11:47 | XMS RPT_ITS | CCD ---
Author Name Unknown Address [address] [facility] [address] [place] [address] Organization [facility] Care Team Providers Care Signal Intelligence/Electronic Warfare Name Role Phone Unavailable Primary Care Provider [...] Drug Class(es) Dates Sig (Normalized) Sig (Original) [id number] 200 actuat albuterol 0.09 mg/actuat metered dose [...] 82.37 kg Karen Dee MD Work Phone: [facility] 01-04-2023 15:53-0400 Diastolic blood pressure 80 mm[Hg] Karen Dee MD Work Phone: [facility] 01-04-2023 15:53-0400 Systolic blood pressure 120 mm[Hg] Karen Dee MD Work Phone: [facility] 11-19-2022 11:35-0400 Body weight 86 kg Lizabeth Ortiz FACULTY MEMBER.CNM Work Phone: [facility] 11-19-2022 11:35-0400 Diastolic blood pressure 74 mm[Hg] Lizabeth Ortiz FACULTY MEMBER.CNM Work Phone: [facility] 11-19-2022 11:35-0400 Systolic blood pressure 126 mm[Hg] Lizabeth Ortiz FACULTY MEMBER.CNM Work Phone: [facility] 11-16-2022 15:59-0400 Body weight 87.54 kg Rose Yin MD Work Phone: [facility] 11-16-2022 15:59-0400 Diastolic blood pressure 70 mm[Hg] Rose Yin MD Work Phone: [facility] 11-16-2022 15:59-0400 Systolic blood pressure 116 mm[Hg] Rose Yin MD Work Phone: [facility] 11-10-2022 15:56-0400 Body weight 89.18 kg Rohit Pickens MD Work Phone: [facility] 11-10-2022 15:56-0400 Diastolic blood pressure 72 mm[Hg] Rohit Picekns MD Work Phone: [facility] 11-10-2022 15:56-0400 Systolic blood pressure 118 mm[Hg] Rohit Pickens MD Work Phone: [facility] 10-20-2022 14:41-0400 Body weight 87.09 kg Niki Tran MD Work Phone: [facility] 10-20-2022 14:41-0400 Diastolic blood pressure 60 mm[Hg] Niki Tran MD Work Phone: [facility] 10-20-2022 14:41-0400 Systolic blood pressure 110 mm[Hg] Niki Tran MD Work Phone: [facility] 10-05-2022 14:22-0400 Body weight 85.28 kg Lizabeth Plotts FACULTY MEMBER.CNM Work Phone: [facility] 10-05-2022 14:22-0400 Diastolic blood pressure 68 mm[Hg] Lizabeth Plotts FACULTY MEMBER.CNM Work Phone: [facility] 10-05-2022 14:22-0400 Systolic blood pressure 112 mm[Hg] Lizabeth Plotts FACULTY MEMBER.CNM Work Phone: [facility] 09-21-2022 13:35-0400 Body weight 85.73 kg Niki Tran MD Work Phone: [facility] 09-21-2022 13:35-0400 Diastolic blood pressure 60 mm[Hg] Niki Tran MD Work Phone: [facility] 09-21-2022 13:35-0400 Systolic blood pressure 104 mm[Hg] Niki Tran MD Work Phone: [facility] 09-07-2022 15:05-0400 Body weight 84.64 kg Karen Dee MD Work Phone: [facility] 09-07-2022 15:05-0400 Diastolic blood pressure 60 mm[Hg] Karen Dee MD Work Phone: [facility] 09-07-2022 15:05-0400 Systolic blood pressure 108 mm[Hg] Karen Dee MD Work Phone: [facility] 08-07-2022 08:26-0400 Body weight 81.78 kg Rohit Pickens MD Work Phone: [facility] 08-07-2022 08:26-0400 Diastolic blood pressure 62 mm[Hg] Rohit Pickens MD Work Phone: [facility] 08-07-2022 08:26-0400 Systolic blood pressure 102 mm[Hg] Rohit Pickens MD Work Phone: [facility] 07-10-2022 14:45-0400 Body weight 81.65 kg Niki Tran MD Work Phone: [facility] 07-10-2022 14:45-0400 Diastolic blood pressure 66 mm[Hg] Niki Tran MD Work Phone: [facility] 07-10-2022 14:45-0400 Systolic blood pressure 120 mm[Hg] Niki Tran MD Work Phone: [facility] 07-10-2022 13:57-0400 Body weight 81.65 kg Ob Ultrasound Work Phone: [facility] 06-19-2022 15:52-0400 Body weight 77.56 kg Niki Tran MD Work Phone: [facility] 06-19-2022 15:52-0400 Diastolic blood pressure 60 mm[Hg] Niki Tran MD Work Phone: [facility] 06-19-2022 15:52-0400 Systolic blood pressure 100 mm[Hg] Niki Tran MD Work Phone: [facility] 05-22-2022 08:26-0400 Body weight 79.83 kg Rochelle Fredonia FACULTY MEMBER.MARKETING PROJECT MANAGER Work Phone: [facility] 05-22-2022 08:26-0400 Diastolic blood pressure 58 mm[Hg] Rochelle Fredonia FACULTY MEMBER.MARKETING PROJECT MANAGER Work Phone: [facility] 05-22-2022 08:26-0400 Systolic blood pressure 116 mm[Hg] Rochelle Di FACULTY MEMBER.MARKETING PROJECT MANAGER Work Phone: [facility] 04-24-2022 11:23-0500 Body height 167.6 cm Karen Dee MD Work Phone: [facility] 04-24-2022 11:23-0500 Body weight 80.02 kg Karen Dee MD Work Phone: [facility] 04-24-2022 11:23-0500 Diastolic blood pressure 70 mm[Hg] Karen Dee MD Work Phone: [facility] 04-24-2022 11:23-0500 Systolic blood pressure 100 mm[Hg] Karen Dee MD Work Phone: [facility] Encounters Encounter Date Encounter Type Care Provider Facility Start: 01-04-2023 End: 01-04-2023 ambulatory KAREN DEE Facility:[facility] Start: 01-04-2023 End: 01-04-2023 Patient encounter procedure [...] 10-05-2022 URINE OB DIP B/O Brock Ortiz FACULTY MEMBER.CNM Work Phone: Start: 09-21-2022 URINE OB DIP B/O Niki Tran MD Work Phone: Start: 09-07-2022 Antibody screen NIKI TRAN Plan of Treatment Date Care Activity Detail Author Start: 09-07-2032 Urine microalbumin profile [facility] Start: 04-24-2027 HPV TESTING HPV TESTING [facility] Start: 04-24-2027 PAP TESTING PAP TESTING [facility] Start: 11-06-2022 Covid-19 Vaccine ( season) Covid-19 Vaccine ( season) [facility] Start: 11-06-2022 Influenza vaccination C [facility] Start: 08-07-2022 End: 10-07-2022 CBC W Auto Differential panel - Blood CBC + DIFF Lab Routine Advanced maternal age, primigravida, antepartum Expected: 08/07/2022, Expires: 10/07/2022 [facility] Work Phone: Immunizations Immunization Date Immunization Notes Care Provider [facility] 01-04-2023 influenza, injectabl e, quadrivalent, contains preservative Karen Dee MD Work Phone: [facility] 09-07-2022 RHO(D) immune globul in- IV or IM Karen Dee MD Work Phone: [facility] 09-07-2022 tetanus toxoid, redu lyudmila diphtheria toxoid, and acellular pertussis vaccine, adsorbed Karen Dee MD Work Phone: [facility] 01-30-2017 tetanus toxoid, redu lyudmila diphtheria toxoid, and acellular pertussis vaccine, adsorbed Karen Dee MD Work Phone: [facility] 01-27-1999 hepatitis B vaccine, pediatric or pediatric/adolescent dosage Karen Dee MD Work Phone: [facility] 09-02-1998 hepatitis B vaccine, pediatric or pediatric/adolescent dosage Karen Dee MD Work Phone: [facility] 07-18-1998 hepatitis B vaccine, pediatric or pediatric/adolescent dosage Karen Dee MD Work Phone: [facility] 07-18-1998 measles, mumps and rubella virus vaccine Karen Dee MD Work Phone: [facility] 06-14-1991 diphtheria, tetanus toxoids and acellular pertussis vaccine, unspecified formulation Karen Dee MD Work Phone: [facility] 06-14-1991 trivalent poliovirus vaccine, live, oral Karen Dee MD Work Phone: [facility] 06-30-1988 diphtheria, tetanus toxoids and acellular pertussis vaccine, unspecified formulation Karen Dee MD Work Phone: [facility] 06-30-1988 trivalent poliovirus vaccine, live, oral Karen Dee MD Work Phone: [facility] 01-07-1988 haemophilus influenz ae type b vaccine, conjugate unspecified formulation Karen Dee MD Work Phone: [facility] 10-24-1987 measles, mumps and rubella virus vaccine Karen Dee MD Work Phone: [facility] 01-24-1987 diphtheria, tetanus toxoids and pertussis vaccine Karen eDe MD Work Phone: [facility] 1986 diphtheria, tetanus toxoids and pertussis vaccine Karen Dee MD Work Phone: [facility] 1986 diphtheria, tetanus toxoids and pertussis vaccine Karen Dee MD Work Phone: [facility] 1986 trivalent poliovirus vaccine, live, oral Karen Dee MD Work Phone: [facility] 1986 trivalent poliovirus vaccine, live, oral Karen Dee MD Work Phone: [facility] Payers Date Payer Category Payer Unknown MMO MMO [employer] [id number] 2018-Present [phone] [address] [place] [address] PPO [id number] 2018 Unknown [id number] 2018 Unknown [id number] Social History Date Type Detail Facility Start: 04-20-2014 End: 04-24-2022 Tobacco smoking status NHIS Never smoked tobacco [facility] Start: 08-23-2020 End: 01-04-2023 Alcohol intake Current non-drinker of alcohol (finding) [facility] Start: 1985 Sex Assigned At Not on file C [facility] Start: 04-20-2014 End: 04-24-2022 Tobacco use and exposure Smokeless tobacco non-user [facility] Work Phone: Start: 04-16-2022 Education 18 [facility] Start: 03-05-2022 [facility] Start: 1985 Sex Assigned At Female C [facility] Start: 07-10-2022 End: 09-07-2022 History of Social function [facility] Start: 07-10-2022 End: 09-07-2022 Tobacco use panel [facility] National Score (1-100), lower number is lower risk 72 [facility] Start: 09-09-2021 Gender identity Identifies as female gender (finding) [facility] Goals Date Patient Goal Desired Activity /State Personal health goal Clinical Notes 07-14-2021 to 01-04-2023 Karen Dee MD - 01/04/2023 3:50 PM EDTTelephone Encounter - Rohit Pickens MD - 12/24/2022 11:42 AM EDTTelephone Encounter - Jana Rodriguez RN - 12/24/2022 10:21 AM EDTPatient Instructions Note Date & Type Note Facility 01-04-2023 Note HNO ID: [id number] Author: Karen Dee MD Service: ? Author Type: Physician Type: Progress Notes Filed: 01/04/2023 5:06 PM Note Text: Specialty Food Products Supervisor offered: Patient declines. VISIT Jeremi Rainey is a 37 year old year old here for visit. Delivery Summary: 11/19/2022 ROS/ Recovery: Feeding: pumping and formula problems: Inadequate milk supply Menses since delivery: none Menstrual pattern prior to : Regular periods [place] since delivery: Not resumed Depression: denies symptoms [...] external genitalia normal, normal Bartholin's glands, urethra, [place]'s glands, no vulvar lesions, no cervical lesions, [...] annual exams and PRN Karen Dee DO [facility] 01-04-2023 History of Presen t illness Narrative Specialty Food Products Supervisor offered: Patient declines. VISIT Jeremi Rainey is a 37 year old year old here for visit. Delivery Summary: 11/19/2022 ROS/ Recovery: Feeding: pumping and formula problems: Inadequate milk supply Menses since delivery: none Menstrual pattern prior to : Regular periods [place] since delivery: Not resumed Depression: denies symptoms [...] external genitalia normal, normal Bartholin's glands, urethra, [place]'s glands, no vulvar lesions, no cervical lesions, [...] Karen Dee DO documented in this encounter [facility] 12-24-2022 Miscellaneous Notes Formattin g of [...] Jana Rodriguez RN documented in this encounter [facility] 12-17-2022 Miscellaneous Notes Formattin g of [...] recommend calling them documented in this encounter [facility] 11-27-2022 Note HNO ID: [id number] Author: Karen Dee MD Service: ? Author [...] reviewed) 1 Feeding: Breast feeding problems: Seeing senior management consultant Bladder: No dysuria, gross hematuria, urinary frequency, urinary urgency, or incontinence Bowel symptoms: Negative for abdominal discomfort, blood in stools or black stools and change in bowel habits Abdomen: N/A Bleeding: light flow Bottom and Perineum: No issues Sleep: no sleep concerns and sleeps in bassinet/crib in parent's room, feels rested [place] since delivery: Not resumed Emotional support: Yes [...] visit and as needed Karen Dee DO [facility] 11-20-2022 Note HNO ID: [id number] Author: Jana Rodriguez RN Service: ? Author Type: ? Type: Progress Notes Filed: 11/20/2022 8:10 AM Note Text: [facility] See OB history. Jana Rodriguez RN [facility] 11-20-2022 History of Presen t illness Narrative Patient [facility] by [facility] at [facility] See OB history. Jana Rodriguez RN documented in this encounter [facility] 11-19-2022 Miscellaneous Notes Formattin g of [...] Lizabeth Ortiz APRN.CNM documented in this encounter [facility] 11-18-2022 Miscellaneous Notes Formattin g of [...] if no answer documented in this encounter [facility] 11-16-2022 Miscellaneous Notes Formattin g of [...] Rose Yin M.D. documented in this encounter [facility] 11-16-2022 Instructions Mounika Jamil Ma - 11/16/2022 3:57 PM EDT SEQUENTIAL SCREENINGS The [facility] offers sequential screenings for women who [...] It will require an appointment with our collection systems technician. This is not an ultrasound performed [...] the above symptoms, contact our office at [phone] and ask to speak with a nurse. After hours, you can call doctors registry at [phone] OR call [facility] at [phone] and ask to have the doctor electronics technology instructor paged. If you consider this an emergency, dial 9-1-5 or go to your nearest emergency department. NEED HELP? Are you dealing with a violent or abusive relationship? Are you a victim of rape or sexual assult? Call [facility] ([place]) 24 hour Crisis Hotline: 195.227.4966 or 198-154-3010. MANUAL Your Guide to a Healthy manual is now on-line. [email or web address]/HealthyPre gnancyGuide to download your free copy documented in this encounter [facility] 11-10-2022 Miscellaneous Notes Formattin g of this note might be different from the original. KJ - No VB/LOF/ctxs. Reports FM. A&P: Reviewed labor & FM precautions Rohit Pickens MD documented in this encounter [facility] 11-10-2022 Instructions Masters Carly Masterson - 11/10/2022 3:52 PM EDT SEQUENTIAL SCREENINGS The [facility] offers sequential screenings for women who [...] It will require an appointment with our collection systems technician. This is not an ultrasound performed [...] the above symptoms, contact our office at [phone] and ask to speak with a nurse. After hours, you can call doctors registry at [phone] OR call [facility] at [phone] and ask to have the doctor electronics technology instructor paged. If you consider this an emergency, dial 9-1-6 or go to your nearest emergency department. NEED HELP? Are you dealing with a violent or abusive relationship? Are you a victim of rape or sexual assult? Call [facility] ([place]) 24 hour Crisis Hotline: 622.192.2788 or 351-386-6494. MANUAL Your Guide to a Healthy manual is now on-line. Visit [email or web address]/HealthyPre gnancyGuide to download your free copy documented in this encounter [facility] 10-20-2022 Miscellaneous Notes Formattin g of this note might be different from the original. DM- Pt doing well today. Denies Vaginal Bleeding, Leaking fluid, or contractions. Pt reports good movement. Kick counts reviewed. RTO 2 wks. Niki Yang MD documented in this encounter [facility] 10-20-2022 Instructions Damaris Escamilla Ma - 10/20/2022 2:38 PM EDT SEQUENTIAL SCREENINGS The [facility] offers sequential screenings for women who [...] It will require an appointment with our collection systems technician. This is not an ultrasound performed [...] the above symptoms, contact our office at [phone] and ask to speak with a nurse. After hours, you can call doctors registry at [phone] OR call [facility] at [phone] and ask to have the doctor electronics technology instructor paged. If you consider this an emergency, dial 9-4 or go to your nearest emergency department. NEED HELP? Are you dealing with a violent or abusive relationship? Are you a victim of rape or sexual assult? Call [facility] ([place]) 24 hour Crisis Hotline: 134.781.4400 or 322-299-4487. MANUAL Your Guide to a Healthy manual is now on-line. [email or web address]/HealthyPre gnancyGuide to download your free copy documented in this encounter [facility] 10-05-2022 Miscellaneous Notes Formattin g of [...] Lizabeth Ortiz APRN.CNM documented in this encounter [facility] 10-05-2022 Ariel Almonte Cma - 10/05/2022 2:15 PM EDT SEQUENTIAL SCREENINGS The [facility] offers sequential screenings for women who [...] It will require an appointment with our collection systems technician. This is not an ultrasound performed [...] the above symptoms, contact our office at [phone] and ask to speak with a nurse. After hours, you can call doctors registry at [phone] OR call [facility] at [phone] and ask to have the doctor electronics technology instructor paged. If you consider this an emergency, dial 9-1-8 or go to your nearest emergency department. NEED HELP? Are you dealing with a violent or abusive relationship? Are you a victim of rape or sexual assult? Call [facility] ([place]) 24 hour Crisis Hotline: 953.905.5245 or 958-427-7639. MANUAL Your Guide to a Healthy manual is now on-line. [email or web address]/HealthyPre gnancyGuide to download your free copy documented in this encounter [facility] 09-21-2022 Miscellaneous Notes Formattin g of [...] Niki Neyhart-Tran, MD documented in this encounter [facility] 09-21-2022 Instructions Damaris Escamilla Ma - 09/21/2022 1:28 PM EDT SEQUENTIAL SCREENINGS The [facility] offers sequential screenings for women who [...] It will require an appointment with our collection systems technician. This is not an ultrasound performed [...] the above symptoms, contact our office at [phone] and ask to speak with a nurse. After hours, you can call doctors registry at [phone] OR call [facility] at [phone] and ask to have the doctor electronics technology instructor paged. If you consider this an emergency, dial 9-1-4 or go to your nearest emergency department. NEED HELP? Are you dealing with a violent or abusive relationship? Are you a victim of rape or sexual assult? Call [facility] ([place]) 24 hour Crisis Hotline: 301.504.8311 or 132-627-4523. MANUAL Your Guide to a Healthy manual is now on-line. Visit [email or web address]/HealthyPre gnancyGuide to download your free copy documented in this encounter [facility] 09-18-2022 Note HNO ID: [id number] Author: Janine Diaz MD Service: ? Author Type: Physician Type: Progress Notes Filed: 09/18/2022 4:23 PM Note Text: visit completed [facility] 09-18-2022 History of Presen t illness Narrative visit completed documented in this encounter [facility] 09-07-2022 Note HNO ID: [id number] Author: Jana Rodriguez RN Service: ? Author [...] her Rhophylac pocket card. Jana Rodriguez RN [facility] 09-07-2022 Note HNO ID: [id number] Author: Britney Dee MA Service: ? Author Type: Cross Roller Type: Progress Notes Filed: 09/07/2022 11:33 PM [...] severely ill: Yes Patient denies history of Guillain-Bloomfield Syndrome (a severe paralytic illness): Yes Tdap Adacel injection was given without incident. See immunizations for details of immunizations administered today. VIS sheet provided: Yes Provider Karen Dee DO was present in office at time of injection. Britney Dee MA [facility] 09-07-2022 History of Presen t illness Narrative [...] severely ill: Yes Patient denies history of Guillain-[place]omfield Syndrome (a severe paralytic illness): Yes Tdap Adacel injection was given without incident. See immunizations for details of immunizations administered today. VIS sheet provided: Yes Provider Karen Dee DO was present in office at time of injection. Britney Dee MA documented in this encounter [facility] 09-07-2022 Miscellaneous Notes Formattin g of this note might be different from the original. SW- No ctx, pain, vb, lof. Good FM. 28 wk labs today. LARC signed. Tdap and Rhogam today. RTO 2 wks. Karen Dee DO documented in this encounter [facility] 09-07-2022 Instructions Perla Baird APRN.FLORENTINO - 09/07/2022 2:46 PM EDT In person and online childbirth options: 1) [facility] Online Virtual Childbirth and Class. -Please call to register and for more information: [phone] and register for our online classes they are $40 for both or $20 for just the class ?? 2) [facility] Online Childbirth Education, , and classes: [email or web address] .[email or web address] 3) Here is a list of online childbirth education and resources. [facility] has online childbirth, , and parenting classes. https://[email or web address].[facility] .[email or web address], type in childbirth https://[email or web address] /childbirth-class/ https://blissful-.[facility]/p/empoweredmamasguide https://mamanaturalbirth.com/ SIGNS AND SYMPTOMS OF LABOR 1. Contractions every 10 minutes or more often 2. Clear, pink, or brownish fluid (water) leaking from vagina 3. Feeling that baby is pushing down, pressure 4. Low, dull backache 5. Cramps that feel like a period 6. Cramps with or without diarrhea If you notice any of the above symptoms, contact our office at [phone] and ask to speak with a nurse. After hours, you can call doctors registry at [phone] OR call [facility] at [phone] and ask to have the doctor electronics technology instructor paged. If you consider this an emergency, dial 9-1-9 or go to your nearest emergency department. NEED HELP? Are you dealing with a violent or abusive relationship? Are you a victim of rape or sexual assult? Call [facility] [place] ([facility] 24 hour Crisis Hotline: 707.670.6827 or 566-689-6171. MANUAL Your Guide to a Healthy manual is now on-line. Visit [facility].org/HealthyPre gnancyGuide to download your free copy documented in this encounter [facility] 08-25-2022 Miscellaneous Notes Formattin g of [...] Britney Dee MA documented in this encounter [facility] 08-07-2022 Miscellaneous Notes Formattin g of this note might be different from the original. KJ - No VB/LOF/ctxs. Reports good FM. She reports some LE swelling. A&P: AMA - continue ASA LE swelling - discussed low salt diet & hydration 28wk labs & rhogam at next visit Reviewed PTL & FM precautions Rohit Pickens MD documented in this encounter [facility] 08-07-2022 Castro Coon Ma - 08/07/2022 8:19 AM EDT SEQUENTIAL SCREENINGS The [facility] offers sequential screenings for women who [...] It will require an appointment with our collection systems technician. This is not an ultrasound performed [...] the above symptoms, contact our office at [phone] and ask to speak with a nurse. After hours, you can call doctors registry at [phone] OR call [facility] at [phone] and ask to have the doctor electronics technology instructor paged. If you consider this an emergency, dial -2 or go to your nearest emergency department. NEED HELP? Are you dealing with a violent or abusive relationship? Are you a victim of rape or sexual assult? Call [facility] ([place]) 24 hour Crisis Hotline: 985.648.1172 or 925-798-9517. MANUAL Your Guide to a Healthy manual is now on-line. Visit [email or web address] to download your free copy documented in this encounter [facility] 07-10-2022 Miscellaneous Notes Formattin g of this note might be different from the original. DM- Pt doing well today. Denies Vaginal Bleeding, Leaking fluid, or contractions. Pt reports good movement. Anatomy us today- GIRL. Taking ASA. RTO 4 wk. Niki Yang MD documented in this encounter [facility] 07-10-2022 Instructions Damaris Escamilla Ma - 07/10/2022 2:09 PM EDT SEQUENTIAL SCREENINGS The [facility] offers sequential screenings for women who [...] It will require an appointment with our collection systems technician. This is not an ultrasound performed [...] the above symptoms, contact our office at [phone] and ask to speak with a nurse. After hours, you can call doctors registry at [phone] OR call [facility] at [phone] and ask to have the doctor electronics technology instructor paged. If you consider this an emergency, dial 9-1- or go to your nearest emergency department. NEED HELP? Are you dealing with a violent or abusive relationship? Are you a victim of rape or sexual assult? Call [facility] ([place]) 24 hour Crisis Hotline: 504.791.9260 or 399-816-6685. MANUAL Your Guide to a Healthy manual is now on-line. Visit [email or web address] to download your free copy documented in this encounter [facility] 06-19-2022 Miscellaneous Notes Formattin g of this note might be different from the original. DM- Pt doing well today. Denies Vaginal Bleeding, Leaking fluid, or cramping. Did not start ASA, will do that. Anatomy us scheduled. RTO 4 wks. Niki Yang MD documented in this encounter [facility] 06-19-2022 Instructions Niki Tran MD - 06/19/2022 3:49 PM EDT ASPIRIN 162mg (2 baby) SEQUENTIAL SCREENINGS The [facility] offers sequential screenings for women who [...] It will require an appointment with our collection systems technician. This is not an ultrasound performed [...] the above symptoms, contact our office at [phone] and ask to speak with a nurse. After hours, you can call doctors registry at [phone] OR call [facility] at [phone] and ask to have the doctor electronics technology instructor paged. If you consider this an emergency, dial 9--1 or go to your nearest emergency department. NEED HELP? Are you dealing with a violent or abusive relationship? Are you a victim of rape or sexual assult? Call [facility] ([place]) 24 hour Crisis Hotline: 529.123.4074 or 609-268-6743. MANUAL Your Guide to a Healthy manual is now on-line. [email or web address] to download your free copy documented in this encounter [facility] 05-22-2022 Miscellaneous Notes Formattin g of this note might be different from the original. RM- Pt doing well today. Denies Vaginal Bleeding, cramping, or N/V. OTC 4 weeks. Anatomy scan scheduled. Rochelle Sevilla APRN.CNP documented in this encounter [facility] 05-22-2022 Castro Coon Ma - 05/22/2022 8:20 AM EDT SEQUENTIAL SCREENINGS The [facility] offers sequential screenings for women who [...] It will require an appointment with our collection systems technician. This is not an ultrasound performed [...] the above symptoms, contact our office at [phone] and ask to speak with a nurse. After hours, you can call doctors registry at [phone] OR call [facility] at [phone] and ask to have the doctor electronics technology instructor paged. If you consider this an emergency, dial 9-1-5 or go to your nearest emergency department. NEED HELP? Are you dealing with a violent or abusive relationship? Are you a victim of rape or sexual assult? Call [facility] ([place]) 24 hour Crisis Hotline: 808.878.5757 or 934-031-6961. MANUAL Your Guide to a Healthy manual is now on-line. [email or web address] to download your free copy documented in this encounter [facility] 04-24-2022 Note HNO ID: [id number] Author: Karen Dee MD Service: ? Author Type: Physician Type: Progress Notes Filed: 04/24/2022 1:22 PM Note Text: Specialty Food Products Supervisor offered: Patient declines. 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 Karen Dee DO [facility] 04-24-2022 History of Presen t illness Narrative Specialty Food Products Supervisor offered: Patient declines. 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 [email or web address] documented in this encounter [facility] 04-16-2022 Miscellaneous Notes Formattin g of [...] period.Jessie Marlow RN documented in this encounter [facility] 07-16-2021 Miscellaneous Notes The caller is calling to give a condition update. She called over the weekend on 07/14. Pregancy test positive. Vagina bleeding. Complains of vaginal bleeding today like a menses. No heavy bleeding. Advised her to call Rochelle Sevilla's office when open today and she agreed documented in this encounter [facility] 07-14-2021 Miscellaneous Notes Reason for call: Patient calling stating she took a test and tested positive, she is having some bleeding and would like to speak to OBGYN office. Outcome: Patient warm conferenced to [place] skein winding operator [phone] for further assistance. documented in this encounter [facility] Diagnosis Advanced maternal age, primigravida, antepartum- Primary Elderly primigravida, antepartum Encounter for care in first trimester of first [facility] Diagnosis OPENED IN ERROR- Primary To allow closing an encounter opened in error (used in SmartSet) [facility] Diagnosis Advanced maternal age, primigravida, antepartum- Primary Elderly primigravida, antepartum 13 weeks gestation of state, incidental [facility]* Diagnosis AMA (advanced maternal age) primigravida 35+, second trimester- Primary 17 weeks gestation of state, incidental [facility] Diagnosis Encounter for anatomic survey- Primary Multigravida of advanced maternal age in second trimester 20 weeks gestation of state, incidental [facility]* Diagnosis AMA (advanced maternal age) primigravida 35+, second trimester- Primary 20 weeks gestation of state, incidental [facility]* Diagnosis Advanced maternal age, primigravida, antepartum- Primary Elderly primigravida, antepartum Rh negative state in antepartum period Rhesus isoimmunization affecting management of mother, antepartum condition 24 weeks gestation of state, incidental [facility]* Diagnosis Advanced maternal age, primigravida, antepartum- Primary Elderly primigravida, antepartum 28 weeks gestation of state, incidental Need for vaccination Need for prophylactic vaccination and inoculation against unspecified single disease Rh negative state in antepartum period Rhesus isoimmunization affecting management of mother, antepartum condition documented in this encounter [facility] note* Diagnosis MEET WITH PHYSICIAN- Primary documented in this encounter [facility] note* Diagnosis AMA (advanced maternal age) primigravida 35+, second trimester- Primary Rh negative state in antepartum period Rhesus isoimmunization affecting management of mother, antepartum condition 30 weeks gestation of state, incidental documented in this encounter [facility] note* Diagnosis 32 weeks gestation of - Primary state, incidental documented in this encounter [facility] note* Diagnosis AMA (advanced maternal age) primigravida 35+, second trimester- Primary 34 weeks gestation of state, incidental Rh negative state in antepartum period Rhesus isoimmunization affecting management of mother, antepartum condition documented in this encounter [facility] note* Diagnosis 37 weeks gestation of - Primary state, incidental Advanced maternal age, primigravida in third trimester, antepartum documented in this encounter [facility] note* Diagnosis 38 weeks gestation of - Primary state, incidental AMA (advanced maternal age) multigravida 35+, third trimester Encounter for supervision of normal first in third trimester Supervision of normal first documented in this encounter [facility] note* Diagnosis 39 weeks gestation of - Primary state, incidental Uterine contractions AMA (advanced maternal age) multigravida 35+, third trimester documented in this encounter [facility] note* Diagnosis care and examination- Primary Routine follow-up Need for influenza vaccination Need for prophylactic vaccination and inoculation against influenza Encounter for initial prescription of contraceptive pills General counseling for prescription of oral contraceptives documented in this encounter [facility] for referral (narrative)* Diagnostic Procedure Only (Routine) - Authorized Specialty Diagnoses / Procedures Referred By Crissy arevalo Referred To Contact [facility] Diagnoses Advanced maternal age, primigravida, antepartum Encounter for care in first trimester of first Procedures OBSTETRIC ULTRASOUND WHI US PREG UTERUS AFTER 1ST TRIMEST GESTATION Karen Dee MD [address] [place] [address] [facility] [address] [place] [address] Referral ID Status Reason Start Date Expiration Date Visits Requested Visits Authorized [id number] Authorized Auto-Generat ed Referral 04/24/2022 04/24/2023 1 1 [facility] Health Concerns Problem Noted Date OB [...] or prosecute any alcohol or drug abuse patient.[facility] the event this information is protected by the Federal Confidentiality of Alcohol and Drug Abuse Patient Records regulations: The Federal rules restrict any use of the information to criminally investigate or prosecute any alcohol or drug abuse patient.[facility] the event this information is protected by the Federal Confidentiality of Alcohol and Drug Abuse Patient Records regulations: The Federal rules restrict any use of the information to criminally investigate or prosecute any alcohol or drug abuse patient.[facility] the event this information is protected by the Federal Confidentiality of Alcohol and Drug Abuse Patient Records regulations: The Federal rules restrict any use of the information to criminally investigate or prosecute any alcohol or drug abuse patient.[facility] the event this information is protected by the Federal Confidentiality of Alcohol and Drug Abuse Patient Records regulations: The Federal rules restrict any use of the information to criminally investigate or prosecute any alcohol or drug abuse patient.[facility] the event this information is protected by the Federal Confidentiality of Alcohol and Drug Abuse Patient Records regulations: The Federal rules restrict any use of the information to criminally investigate or prosecute any alcohol or drug abuse patient.[facility] the event this information is protected by the Federal Confidentiality of Alcohol and Drug Abuse Patient Records regulations: The Federal rules restrict any use of the information to criminally investigate or prosecute any alcohol or drug abuse patient.[facility] the event this information is protected by the Federal Confidentiality of Alcohol and Drug Abuse Patient Records regulations: The Federal rules restrict any use of the information to criminally investigate or prosecute any alcohol or drug abuse patient.[facility] the event this information is protected by the Federal Confidentiality of Alcohol and Drug Abuse Patient Records regulations: The Federal rules restrict any use of the information to criminally investigate or prosecute any alcohol or drug abuse patient.[facility] the event this information is protected by the Federal Confidentiality of Alcohol and Drug Abuse Patient Records regulations: The Federal rules restrict any use of the information to criminally investigate or prosecute any alcohol or drug abuse patient.[facility] the event this information is protected by the Federal Confidentiality of Alcohol and Drug Abuse Patient Records regulations: The Federal rules restrict any use of the information to criminally investigate or prosecute any alcohol or drug abuse patient.[facility] the event this information is protected by the Federal Confidentiality of Alcohol and Drug Abuse Patient Records regulations: The Federal rules restrict any use of the information to criminally investigate or prosecute any alcohol or drug abuse patient.[facility] the event this information is protected by the Federal Confidentiality of Alcohol and Drug Abuse Patient Records regulations: The Federal rules restrict any use of the information to criminally investigate or prosecute any alcohol or drug abuse patient.[facility] the event this information is protected by the Federal Confidentiality of Alcohol and Drug Abuse Patient Records regulations: The Federal rules restrict any use of the information to criminally investigate or prosecute any alcohol or drug abuse patient.[facility] the event this information is protected by the Federal Confidentiality of Alcohol and Drug Abuse Patient Records regulations: The Federal rules restrict any use of the information to criminally investigate or prosecute any alcohol or drug abuse patient.[facility] the event this information is protected by the Federal Confidentiality of Alcohol and Drug Abuse Patient Records regulations: The Federal rules restrict any use of the information to criminally investigate or prosecute any alcohol or drug abuse patient.[facility] the event this information is protected by the Federal Confidentiality of Alcohol and Drug Abuse Patient Records regulations: The Federal rules restrict any use of the information to criminally investigate or prosecute any alcohol or drug abuse patient.[facility] the event this information is protected by the Federal Confidentiality of Alcohol and Drug Abuse Patient Records regulations: The Federal rules restrict any use of the information to criminally investigate or prosecute any alcohol or drug abuse patient.[facility]In the event this information is protected by the Federal Confidentiality of Alcohol and Drug Abuse Patient Records regulations: The Federal rules restrict any use of the information to criminally investigate or prosecute any alcohol or drug abuse patient.[facility]In the event this information is protected by the Federal Confidentiality of Alcohol and Drug Abuse Patient Records regulations: The Federal rules restrict any use of the information to criminally investigate or prosecute any alcohol or drug abuse patient.[facility] HospitalIn the event this information is protected by the Federal Confidentiality of Alcohol and Drug Abuse Patient Records regulations: The Federal rules restrict any use of the information to criminally investigate or prosecute any alcohol or drug abuse patient.[facility] the event this information is protected by the Federal Confidentiality of Alcohol and Drug Abuse Patient Records regulations: The Federal rules restrict any use of the information to criminally investigate or prosecute any alcohol or drug abuse patient.[facility] HospitalIn the event this information is protected by the Federal Confidentiality of Alcohol and Drug Abuse Patient Records regulations: The Federal rules restrict any use of the information to criminally investigate or prosecute any alcohol or drug abuse patient.[facility] the event this information is protected by the Federal Confidentiality of Alcohol and Drug Abuse Patient Records regulations: The Federal rules restrict any use of the information to criminally investigate or prosecute any alcohol or drug abuse patient.[facility] the event this information is protected by the Federal Confidentiality of Alcohol and Drug Abuse Patient Records regulations: The Federal rules restrict any use of the information to criminally investigate or prosecute any alcohol or drug abuse patient.[facility] Reason for Visit (unrecogniz ed section and content) Reason Comments Vaginal Bleeding Reason Comments Care Reason Comments Care Reason Comments Opened In Error Reason Onset Date Comments Care 05/22/2022 Reason Onset Date Comments Care 06/19/2022 Reason Comments US Specialty Diagnoses / Procedures Referred By Contreba t Referred To Contact [facility] Diagnoses Advanced maternal age, primigravida, antepartum Encounter for care in first trimester of first Procedures OBSTETRIC ULTRASOUND WHI US PREG UTERUS AFTER 1ST TRIMEST GESTATION Karen Dee MD [address] [place] [address] [facility] [address] [facility] [place] [address] Referral ID Status Reason Start Date Expiration Date V isits Requested Visits Authorized [id number] Closed Auto-Generate d Referral 04/24/2022 04/24/2023 1 [...] BE BASED ON THE PRIMARY CLINICAL RECORDS. [facility] [employer] [facility]. provides no warranty or guarantee of the accuracy or completeness of information in this document.
[2023-04-23 15:50] LABS: Absolute Lymphocyte Count 3.24 X10^3/uL (0.83-4.51); Absolute Neutrophil Count 9.1 X10^3/uL (2.0-7.7); Basophil# 0.07 X10^3/uL; Basophil% 0.5 % (0-1); Eosinophil# 0.14 X10^3/uL; Eosinophils% 1.1 % (0-5); Hematocrit 44.7 % (37-47); Hemoglobin 14.5 g/dL (12.0-15.0); Lymphocyte # 3.24 X10^3/ul (0.83-4.51); Lymphocyte % 24.3 % (19-41); Mean Corp Hgb Conc 32.4 g/dL (32-36); Mean Corpuscular Hgb 29.3 pg (27.0-32.0); Mean Corpuscular Volume 90.3 fL (81-99); Mean Platelet Vol. 10.3 fl (6.2-12.0); Monocyte# 0.74 X10^3/uL; Monocyte% 5.6 % (0-10); NRBC Flagged by Analyzer 0 % (0-5); Neutrophil # 9.06 X10^3/uL (2.7-7.7); Platelet Count 380 K/mm3 (150-450); RBC Distribution Width CV 12.4 % (11.6-14.6); RBC Distribution Width SD 40.4 fl (35.1-43.9); Red Blood Count 4.95 M/mm3 (4.2-5.4); White Blood Count 13.3 K/mm3 (4.4-11.0)
== END | disposition home or self-care (01) ==
LOC: MFPLAB 11:28
PROVIDERS: PCP Family Medicine; Visit Provider Family Medicine
DX: D72.829 Elevated white blood cell count, unspecified (principal)
CPT/HCPCS: 85025

== ENCOUNTER 2023-05-18 16:00 | Outpatient (RCR) | payer OTHER, SELFPAY ==
--- NOTE | 2023-04-06 18:33 | HP.PTEVAL ---
Patient's Visit Information Visit Information Visit Information: GIORGIO HASTINGS is a 37 year old F referred to Physical Therapy by LAILA Tyler with a diagnosis of vertigo. Date of Evaluation: 04/06/23 Physical Therapist: Guillermo Qureshi, NIKI, OCS, CSCS Visit Plan Frequency: 1x/Week Duration: 4-6 Weeks Plan: weekly to progress vestibular adaptation ex as needed x 4-6 Doing VOR H seated 60 sec 8x/day at home and reviewed speed and environment progressions. Subjective Subjective: I may have vertigo. Is 4 months post . Lots of ear trouble as an adult with infections. [place] off after ear infection last year. Now feel imbalanced often but not always. Feels like she leans L. Walking at grocery store adn school much worse. They think it is vertigo at doctor office. Blood work was OK. No falls. No neuropathy. No back problems. No spinning and never has. Sleep is OK. 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 Has to stop and stabilize 3-4x/day and feels normal in between. Hobbies: 4 month old. Basic ADLs are OK. has been this way for at least 4 months ago. Objective Objective: Walks independently into adn out of PT without balance issues. Trasnfer chair and steps eaasily without problems. VOR walking is challenging, otherwise good balance. cervical aROM full and painfree UE aROM without pain and 4/5 strength - B hallpike brigette - roll test oculaomotor : normal pursuit and saccades. no nystagmus with gaze or head shake - skew eye deviation - ocular tilt - head thrust DVA 5 lines different from SVA VOR give unsteady/dizzy feeling mildly Horizontally but not vertically. Balance/Special Test Scores Functional Gait Assessment Score: 30 % Disability: 0 CATSIB Score (Max score 120 seconds): 120 Dizziness Score: 26 Goals Goal 1:: abolish dizzy feeling on community x 4 days Goal Time Frame: 4-6 Weeks Goal 2:: VOR 60 seocnds H x 2 without dizzyness Goal Time Frame: 4-6 Weeks Goal 3:: DHI score 6 or less. Goal Time Frame: 4-6 Weeks Rehabilitation Potential Physical Therapy Diagnosis: likely vestibular hypofunction leading to discomfort in schoola dn shopping with balance. Rehabilitation Potential: Good Anticipated Interventions Patient/Client Instruction: Educate patient on: Condition and Risk Factors For the Purpose of:: To increase tolerance to activity/condition/position Comment: vestibular ex For the Purpose of:: To increase tolerance to activity/condition/position Text: Thank you for the opportunity to evaluate your patient. For Medicare and Medicare HMO plans, please review the plan of care and approve it. It will need to be FAXED BACK to us at [phone] for Medicare purposes. For Medicare only, by signing this I certify the plan of care. Please let me know if there are questions or concerns regarding this plan of care. Physician Signature: Date:
--- NOTE | 2023-05-18 16:16 | HP.PTDCSUM ---
Discharge Summary D/C summary: It has been my pleasure to treat GIORGIO HASTINGS referred by LAILA Tyler, with the diagnosis of vertigo for a total of 3 visit(s). Discharge Date: 05/18/23 Please see the following information for a summary of their discharge status. Subjective Subjective: All better. Just some moments here adn there. grocery store Wednesday and much better. Exercises regularly without symptoms. Balance is fine. No f/u with doctor. Overall Improvement % Improvement: 90 Objective Objective/Function: No dizzyness or problems with VOR, VORX@ busy, slight quickj dizzyness with 360 turns but trasnient. Walking well and no dizzyness or LOB today. Goals Goal 1:: abolish dizzy feeling on community x 4 days Goal Progress: Goal Met Goal 2:: VOR 60 seocnds H x 2 without dizzyness Goal Progress: Goal Met Goal 3:: DHI score 6 or less. Goal Progress: Goal Met Plan Plan: d/c D/C Information d/c sentence: If there are questions or concerns regarding this patient's physical therapy, please feel free to call me at [phone]. Thank you for the referral of this patient. Sincerely, Guillermo Qureshi, DPT, OCS, CSCS Balance/Gait/Functional tests Balance/Special Test Scores Functional Gait Assessment Score: 30 % Disability: 0 CATSIB Score (Max score 120 seconds): 120 Dizziness Score: 0 Improvement % Improvement: 90
== END 2023-05-18 19:00 | disposition home or self-care (01) ==
LOC: PT 16:00
PROVIDERS: PCP Family Medicine; Referring Provider Nurse Practitioner Family; Visit Provider Nurse Practitioner Family
DX: R42 Dizziness and giddiness (principal)
CPT/HCPCS: 97161; 97530